=== PATIENT | male | born 1980 | race Two or more races ===

== ENCOUNTER 2019-09-01 00:07 | Inpatient (IN) ==
[2019-09-01] MEDS ORDERED: ONDANSETRON INJ 2 MG/ML 2 ML VIAL IV STA (00:27)
[2019-09-01] MEDS ORDERED: KETOROLAC TROMETHAMINE 15 MG/ML VIAL IV STA (00:27)
[2019-09-01] MEDS ORDERED: MoRPHine SULFATE 4 MG/ML 1 ML CARP\\VIAL IV STA ×2 (00:27→02:01)
--- NOTE | 2019-09-01 00:29 | Emergency Department Note ---
History of Present Illness General Chief complaint: Kidney Stone Stated complaint: EUSEBIANEY STONE Time Seen by Provider: 09/01/19 00:23 History of Present Illness Maximum Pain Intensity: 10 This is a 38-year-old male with a history of renal calculi that presents to the emergency department via private vehicle with complaints of "right-sided flank pain". The patient states that earlier this evening he began with abrupt onset of right-sided flank pain. This was 1 hour prior to arrival. He states that this does feel similar to previous kidney stones. He states that he was admitted in the past. He denies any other pertinent past medical history, surgeries or allergies. No trauma or injury. No fevers or chills. No aggravating or alleviating factors. Home Medications Home Medications Medication Instructions Recorded Confirmed Type cholecalciferol (vitamin D3) 2,000 unit PO DAILY 10/08/18 09/01/19 History [Vitamin D3] multivitamin 1 tab PO DAILY 10/08/18 09/01/19 History trimethoprim 100 mg tablet 100 mg PO Q12H 30 Days #60 tab 08/21/19 09/01/19 Rx Allergies Allergy/AdvReac Type Severity Reaction Status Date / Time No Known Allergies Allergy Mild Verified 09/01/19 00:26 Past Med/Surg History Medical History Hypertension Kidney stones Surgical History No history of previous surgery Family History Grandmother Hypertension Grandfather Cancer Social History Preferred Language: Spanish Communication Ability: Effective Multi Skilled Operator Required: No Beliefs That Will Affect Care: None marital status: Current Living Situation: Alone Current Living Situation Comment: FRIEND current occupational status: employed current occupation: [employer] Other Information That Helps Us Care for You: No Feels Safe at Home: Yes Safety Concerns: Feels Safe At This Time Smoking Status: Never smoker Do You Dip or Chew Tobacco: No ; Second Hand Exposure: No ; Hx Alcohol Use: Yes Alcohol type: beer, wine and hard liquor Hx Substance Use: No Review of Systems A total of 10 systems reviewed and were otherwise negative Physical Exam Vital Signs Vital Signs - 24 hr 09/01/19 00:09 09/01/19 00:37 09/01/19 00:55 Temperature 36.6 C Temperature Source Oral Pulse Rate 69 Pulse Rate [Right Finger] 90 59 L Respiratory Rate 16 18 18 Respiratory Effort / Characteristics Non-Labored Spontaneous Respiratory Depth Normal Blood Pressure 148/81 H Blood Pressure [Left Arm] 158/99 H 148/93 H Blood Pressure Mean 103 Blood Pressure Mean [Left Arm] 118 111 Blood Pressure Position [Left Arm] Sitting Pulse Oximetry 98 96 97 Oxygen Delivery Method Room Air Room Air Room Air Sepsis Recent Fever Within 48 Hours No Sepsis New/Unexplained Change in Mental Status No Sepsis Action Taken by Nursing No Action Required 09/01/19 01:27 09/01/19 02:22 Temperature Temperature Source Pulse Rate Pulse Rate [Right Finger] 70 79 Respiratory Rate 18 18 Respiratory Effort / Characteristics Respiratory Depth Blood Pressure Blood Pressure [Left Arm] 130/79 140/48 L Blood Pressure Mean Blood Pressure Mean [Left Arm] 96 78 Blood Pressure Position [Left Arm] Pulse Oximetry 97 100 Oxygen Delivery Method Room Air Room Air Sepsis Recent Fever Within 48 Hours Sepsis New/Unexplained Change in Mental Status Sepsis Action Taken by Nursing VITAL SIGNS - Vital signs and nursing notes were reviewed. Stable and afebrile. GENERAL -38-year-old male appearing his stated age who is in no acute distress but appears to be in severe pain, is holding the right flank/abdomen and is vomiting. Communicates well with provider and answers questions appropriately. SKIN - Without rashes. HEAD - NC/AT. EYES - PERRL with EOMI bilaterally. EARS - No deformities of external structures noted on gross examination bilate rally. NOSE - Midline and without cyanosis. No epistaxis or purulent drainage noted. MOUTH/OROPHARYNX - Without perioral cyanosis. NECK - Neck with FROM. Supple to palpation. No lymphadenopathy noted. No nuchal rigidity. LUNGS - Chest wall symmetric without accessory muscle use, intercostals retra ctions, or central cyanosis. Normal vesicular breath sounds CTA B/L. No wheezes, rales, or rhonchi appreciated. CARDIAC - RRR with S1/S2. No murmur, rubs, or gallops appreciated. ABDOMEN - Abdominal contour normal without pulsations or visible masses. BS normoactive all four quadrants. R flank tenderness noted. EXTREMITIES - No clubbing or peripheral cyanosis. No pretibial edema present. +5/5 strength noted in UE/LE bilaterally. NEUROLOGIC - Cranial nerves II through XII grossly intact. Sensory intact to light touch throughout. PSYCH - A&O, and cooperates fully with examiner. Pt is very pleasant and interacts well with examiner. Course Administered Medications Morphine Sulfate (Morphine Sulfate) 4 mg IV Q3H PRN PRN Reason: Severe Pain Stop: 09/15/19 04:10 Last Admin: 09/01/19 07:43 Dose: 4 mg Documented by: [id number] Admin: 09/01/19 04:40 Dose: 4 mg Documented by: [id number] Ondansetron HCl (Zofran) 4 mg IV Q6H PRN PRN Reason: Nausea Stop: 10/01/19 04:10 Last Admin: 09/01/19 04:40 Dose: 4 mg Documented by: [id number] Discontinued Medications Sodium Chloride (Nss 1000ml) 1,000 mls @ 999 mls/hr IV .Q1H1M RAMON Stop: 09/01/19 01:30 Last Infusion: 09/01/19 01:21 Dose: 0 mls/hr Documented by: [id number] Admin: 09/01/19 00:33 Dose: 999 mls/hr Documented by: [id number] Sodium Chloride (Nss 1000ml) 1,000 mls @ 999 mls/hr IV .Q1H1M ONE Stop: 09/01/19 05:11 Last Infusion: 09/01/19 05:48 Dose: 0 mls/hr Documented by: [id number] Admin: 09/01/19 04:41 Dose: 999 mls/hr Documented by: [id number] Ketorolac Tromethamine (Toradol) 15 mg IV NOW STA Stop: 09/01/19 00:28 Last Admin: 09/01/19 00:33 Dose: 15 mg Documented by: [id number] Morphine Sulfate (Morphine Sulfate) 4 mg IV NOW STA Stop: 09/01/19 00:28 Last Admin: 09/01/19 00:33 Dose: 4 mg Documented by: [id number] Morphine Sulfate (Morphine Sulfate) 4 mg IV NOW STA Stop: 09/01/19 02:02 Last Admin: 09/01/19 02:21 Dose: 4 mg Documented by: [id number] Ondansetron HCl (Zofran) 4 mg IV NOW STA Stop: 09/01/19 00:28 Last Admin: 09/01/19 00:33 Dose: 4 mg Documented by: [id number] Tamsulosin HCl (Flomax) 0.4 mg PO NOW ONE Stop: 09/01/19 02:02 Last Admin: 09/01/19 02:21 Dose: 0.4 mg Documented by: [id number] Medical Decision Making Laboratory Data Result diagrams: 09/01/19 00:19 09/01/19 00:19 Lab Results 09/01/19 09/01/19 09/01/19 Range/Units 00:19 00:19 02:00 WBC 6.21 (4.8-10.8) K/uL RBC 5.17 (4.7-6.1) M/uL Hgb 16.2 (14.0-18.0) g/dL Hct 45.8 (42-52) % MCV 88.6 (80-100) fL MCH 31.3 (25-34) pg MCHC 35.4 (32-36) g/dL RDW Std Deviation 38.5 (36.4-46.3) fL RDW Coeff of Uri 12.0 (11.5-14.5) % Plt Count 207 (130-400) K/uL MPV 12.6 H (7.4-10.4) fL Immature Gran % (Auto) 0.2 % Neut % (Auto) 46.6 % Lymph % (Auto) 38.3 % [place] % (Auto) 8.9 % Eos % (Auto) 5.5 % Baso % (Auto) 0.5 % Immature Gran # (Auto) 0.01 (0.00-0.02) K/uL Neut # (Auto) 2.90 (1.4-6.5) K/uL Lymph # (Auto) 2.38 (1.2-3.4) K/uL [place] # (Auto) 0.55 (0.11-0.59) K/uL Eos # (Auto) 0.34 (0-0.5) K/uL Baso # (Auto) 0.03 (0-0.2) K/uL Sodium 138 (136-145) mmol/L Potassium 3.9 (3.5-5.1) mmol/L Chloride 103 (98-107) mmol/L Carbon Dioxide 30 (21-32) mmol/L Anion Gap 5.0 (3-11) BUN 18 (7-18) mg/dl Creatinine 1.41 H (0.6-1.4) mg/dl Est Cr Clr Drug Dosing Not Reportable Est GFR ( Amer) 72.7 Est GFR (Non-Af Amer) 62.7 BUN/Creatinine Ratio 12.6 (10-20) Glucose 112 H (70-99) mg/dl Calcium 9.3 (8.5-10.1) mg/dl Magnesium 2.0 (1.8-2.4) mg/dl Total Bilirubin 0.5 (0.2-1) mg/dl AST 14 L (15-37) U/L ALT 22 (12-78) U/L Alkaline Phosphatase 59 (45-117) U/L Total Protein 7.7 (6.4-8.2) gm/dl Albumin 4.1 (3.4-5.0) gm/dl Globulin 3.6 (2.5-4.0) gm/dl Albumin/Globulin Ratio 1.1 (0.9-2) Lipase 148 (73-393) U/L Urine Color Yellow Urine Appearance Clear (Clear) Urine pH 7.0 (4.5-7.5) Ur Specific [place] 1.023 (1.000-1.030) Urine Protein Negative (Negative) Urine Glucose (UA) Negative (Negative) Urine Ketones Trace H (Negative) Urine Blood 3+ H (Negative) Urine Nitrite Negative (Negative) Urine Bilirubin Negative (Negative) Urine Urobilinogen Negative (Negative) Ur Leukocyte Esterase Negative (Negative) Urine WBC (Auto) 1-5 (0-5) /hpf Urine RBC (Auto) >30 H (0-4) /hpf U Hyaline Cast (Auto) 1-5 (0-5) /lpf U Epithel Cells (Auto) 0-5 (0-5) /lpf Urine Bacteria (Auto) Negative (Negative) Imaging Data Radiologist's Impression: CT ABDOMEN & PELVIS Without Contrast: There is a 3 mm obstructing stone within the distal right ureter with mild upstream hydroureteronephrosis. 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 Normal appendix. Radiologist: Te Whipple MD Study ready at 00:55 and initial results transmitted at 01:37 MDM Narrative Patient was seen and evaluated as above in room a 4. Review was performed of nursing notes and vital signs. After obtaining a thorough history and physical examination the above work up was performed. He presents to us today with some right flank pain. He is nontoxic on exam but does appear to be in a fair amount of pain. IV access was established. He was given IV analgesics, antiemetics. He was reevaluated with some improvement. CT scan obtained. 3 mm obstructing stone noted with secondary obstructive changes. Pain was still moderate and he was given more pain medication. Benefit versus risk of inpatient versus outpatient management was discussed. Patient would prefer to stay in the hospital for further evaluation and management. I believe this is reasonable. Case discussed with the hospitalist. Please refer to further documentation regarding his stay. Labs reveal no leukocytosis or anemia. No emergent metabolic disturbance. Creatinine 1.41. Urinalysis reveals blood but no infection. Case discussed with the hospitalist. Please refer to further documentation In the evaluation and treatment of this patient the following differential diagnoses were entertained: Fracture, dislocation, subluxation, contusion, renal calculi, obstruction, pyelonephritis, UTI, among others. Impression & Plan Hydroureteronephrosis, Ureteral obstruction, right, Right ureteral calculus Discharge Plan Visit Data *Final* Discharge Date/Time: 09/01/19 03:54 Chief Complaint: Kidney Stone Stated Complaint: KINDNEY STONE ED Provider: Kenia Arzate ED Midlevel Provider: Alvin Schuster Discharge Problem: Hydroureteronephrosis, Ureteral obstruction, right, Right ureteral calculus Patient Disposition: Admitted As Inpatient Condition: Good Discharge Instructions Interventions: ED Discharge Assessment Last Done: 09/01/19 03:54
[2019-09-01] MEDS ORDERED: SODIUM CHLORIDE 0.9% 1000ML 1,000 ML IV SCH (00:30)
[2019-09-01 00:39] LABS: Basophils # (auto) 0.03 K/uL (0-0.2); Basophils % (auto) 0.5 %; Eosinophils # (auto) 0.34 K/uL (0-0.5); Eosinophils % (auto) 5.5 %; Hematocrit (blood only) 45.8 % (42-52); Hemoglobin 16.2 g/dL (14.0-18.0); Immature Granulocytes # (auto) 0.01 K/uL (0.00-0.02); Immature Granulocytes % (auto) 0.2 %; Lymphocytes # (auto) 2.38 K/uL (1.2-3.4); Lymphocytes % (auto) 38.3 %; Mean Corpuscular Hemoglobin 31.3 pg (25-34); Mean Corpuscular Hgb Conc 35.4 g/dL (32-36); Mean Corpuscular Volume 88.6 fL (80-100); Mean Platelet Volume 12.6 fL (7.4-10.4); Monocytes # (auto) 0.55 K/uL (0.11-0.59); Monocytes % (auto) 8.9 %; Neutrophils % (auto) 46.6 %; Platelet Count 207 K/uL (130-400); RDW Standard Deviation 38.5 fL (36.4-46.3); Red Blood Count 5.17 M/uL (4.7-6.1); White Blood Count 6.21 K/uL (4.8-10.8)
[2019-09-01 00:59] LABS: Alanine Aminotransferase 22 U/L (12-78); Albumin Level 4.1 gm/dl (3.4-5.0); Aspartate Aminotransferase 14 U/L (15-37); BUN Creatinine Ratio 12.6 (10-20); Blood Urea Nitrogen 18 mg/dl (7-18); Calcium 9.3 mg/dl (8.5-10.1); Carbon Dioxide 30 mmol/L (21-32); Chloride 103 mmol/L (98-107); Est GFR (African American) 72.7; Est GFR (Non-African American) 62.7; Glucose 112 mg/dl (70-99); Lipase 148 U/L (73-393); Potassium 3.9 mmol/L (3.5-5.1); Sodium 138 mmol/L (136-145)
[2019-09-01 01:01] LABS: Albumin Globulin Ratio 1.1 (0.9-2); Alkaline Phosphatase 59 U/L (45-117); Bilirubin,Total 0.5 mg/dl (0.2-1); Globulin 3.6 gm/dl (2.5-4.0); Total Protein 7.7 gm/dl (6.4-8.2)
[2019-09-01] MEDS ORDERED: TAMSULOSIN HCL 0.4 MG CAP PO ONE (02:01)
[2019-09-01 02:27] LABS: Appearance Urine Clear (Clear); Bacteria Urine Automated Negative (Negative); Bilirubin Urine Negative (Negative); Blood Urine 3+ (Negative); Color Urine Yellow; Epithelial Cell Urine Auto 0-5 /lpf (0-5); Glucose Urine UA Negative (Negative); Ketones Urine Trace (Negative); Leukocyte Esterase Urine Negative (Negative); Nitrite Urine Negative (Negative); Protein Urine Negative (Negative); RBC Urine Automated >30 /hpf (0-4); Specific Gravity Urine 1.023 (1.000-1.030); Urobilinogen Urine Negative (Negative)
--- NOTE | 2019-09-01 03:29 | History & Physical Report ---
Date of Service September 01, 2019 Assessment & Plan (1) Right distal ureteral calculus: Right distal 3 mm ureteral calculus with mild hydronephrosis of right kidney- NPO He is received 1 L of normal saline in the ED so far. We will add a second liter now. Follow urine culture and sensitivities. Start ceftriaxone 1 g IV daily. Morphine sulfate 4 mg IV every 3 hours as needed severe pain. Consult urology Dr. Murphy. Present on Admission?: Yes (2) Hydronephrosis of right kidney: See above Present on Admission?: Yes (3) Chronic prostatitis: Patient was recently started on trimethoprim on 08/21/2019 with plan for 30-day treatment. We will hold trimethoprim for now, as he will be placed on ceftriaxone IV. Present on Admission?: Yes (4) Kidney stone on left side: Patient's previous kidney stones on the left side He reports it took 3 days to pass, but did not require stent placement. Present on Admission?: Yes History of Present Illness Chief Complaint: The patient presents to the emergency department with the acute onset of right flank pain at 11:00 this evening, similar to his previous kidney stone. Primary Care Provider: NO PCP The patient is a 38-year-old male with a past medical history including chronic prostatitis, previous kidney stone on the left side, and urinary tract infection. He reports that he was aware of a kidney stone being present within the kidney on the right side, and thus when he experienced acute onset of the pain at 11:00 this evening on the right side, he figured it was kidney stone had moved, and presented to the ED for assessment. He has had some intermittent nausea as well. Both the pain and nausea are controlled with medications at this time. He reports that he had been to see Dr. Murphy on August 21, and was started on trimethoprim 100 mg p.o. every 12 hours for 30 days due to possible urinary tract infection. Allergies Allergy/AdvReac Type Severity Reaction Status Date / Time No Known Allergies Allergy Mild Verified 09/01/19 00:26 Home Medications Home Medications Medication Instructions Recorded Confirmed Type cholecalciferol (vitamin D3) 2,000 unit PO DAILY 10/08/18 09/01/19 History [Vitamin D3] multivitamin 1 tab PO DAILY 10/08/18 09/01/19 History trimethoprim 100 mg tablet 100 mg PO Q12H 30 Days #60 tab 08/21/19 09/01/19 Rx Past Med/Surg History Medical History (Updated 09/01/19 @ 04:19 by Andrey Brunson MD) Hypertension Kidney stones Surgical History No history of previous surgery Family History (Updated 08/21/19 @ 16:28 by Armida Vigil RN) Grandmother Hypertension Grandfather Cancer Social History (Updated 08/21/19 @ 16:29 by Armida Vigil RN) Preferred Language: [place]an Communication Ability: Effective Manager Medical Writing Required: No Beliefs That Will Affect Care: None marital status: Current Living Situation: Significant Other Current Living Situation Comment: FRIEND current occupational status: employed 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 Feels Safe at Home: Yes Smoking Status: Never smoker Second Hand Exposure: No ; Hx Alcohol Use: Yes Alcohol type: beer and wine Hx Substance Use: No Review of Systems Review of Systems: The patient denies chest pain, palpitations, shortness of breath, dyspnea on exertion, cough, lower extremity swelling, sore throat, fevers, chills, sweats, vomiting, diarrhea , constipation, blood in urine or stool, dysuria, urinary frequency or urgency, lightheadedness, dizziness, headache, memory loss, loss of consciousness, rash, abnormal bruising or bleeding, imbalance, focal or generalized weakness, numbness or tingling in arms or legs, generalized arthralgias or myalgias, neck pain, or night sweats. The review of systems is otherwise negative other than for that already noted above, and at least 10 systems have been reviewed. Physical Exam Physical Exam: The patient is awake, alert and oriented 3, well developed and well nourished, normocephalic and atraumatic, lying in bed and in no acute distress. HEENT--PERRL, EOMI, mucous membranes and oropharynx normal. Neck--supple. No JVD. No bruits. Thyroid normal, trachea midline, no adenopathy. Heart--normal S1 and S2. No murmurs, rubs or gallops. Lungs--clear bilaterally, no respiratory distress, no accessory muscle use. Abdomen--normal bowel sounds and soft. Nontender. Nondistended. Extremities--no cyanosis or clubbing. No edema. Dermatologic--normal skin turgor, normal color, no abnormal lymph nodes, no rash. Neurologic--cranial nerves II through XII grossly intact. Rheumatologic--normal range of motion. Psychiatric--normal affect. Results & Data Vital Signs (Past 12 Hours) Vital Signs Temp Pulse Pulse Resp BP BP Pulse Ox 09/01/19 02:22 79 18 140/48 L 100 09/01/19 01:27 70 18 130/79 97 09/01/19 00:55 59 L 18 148/93 H 97 09/01/19 00:37 90 18 158/99 H 96 09/01/19 00:09 97.9 F 69 16 148/81 H 98 Laboratory Results Laboratory Results WBC 6.21 K/uL (4.8-10.8) 09/01/19 00:19 RBC 5.17 M/uL (4.7-6.1) 09/01/19 00:19 Hgb 16.2 g/dL (14.0-18.0) 09/01/19 00:19 Hct 45.8 % (42-52) 09/01/19 00:19 MCV 88.6 fL (80-100) 09/01/19 00:19 MCH 31.3 pg (25-34) 09/01/19 00:19 MCHC 35.4 g/dL (32-36) 09/01/19 00:19 RDW Std Deviation 38.5 fL (36.4-46.3) 09/01/19 00:19 RDW Coeff of Uri 12.0 % (11.5-14.5) 09/01/19 00:19 Plt Count 207 K/uL (130-400) 09/01/19 00:19 MPV 12.6 fL (7.4-10.4) H 09/01/19 00:19 Immature Gran % (Auto) 0.2 % 09/01/19 00:19 Neut % (Auto) 46.6 % 09/01/19 00:19 Lymph % (Auto) 38.3 % 09/01/19 00:19 [place] % (Auto) 8.9 % 09/01/19 00:19 Eos % (Auto) 5.5 % 09/01/19 00:19 Baso % (Auto) 0.5 % 09/01/19 00:19 Immature Gran # (Auto) 0.01 K/uL (0.00-0.02) 09/01/19 00:19 Neut # (Auto) 2.90 K/uL (1.4-6.5) 09/01/19 00:19 Lymph # (Auto) 2.38 K/uL (1.2-3.4) 09/01/19 00:19 [place] # (Auto) 0.55 K/uL (0.11-0.59) 09/01/19 00:19 Eos # (Auto) 0.34 K/uL (0-0.5) 09/01/19 00:19 Baso # (Auto) 0.03 K/uL (0-0.2) 09/01/19 00:19 Sodium 138 mmol/L (136-145) 09/01/19 00:19 Potassium 3.9 mmol/L (3.5-5.1) 09/01/19 00:19 Chloride 103 mmol/L (98-107) 09/01/19 00:19 Carbon Dioxide 30 mmol/L (21-32) 09/01/19 00:19 Anion Gap 5.0 (3-11) 09/01/19 00:19 BUN 18 mg/dl (7-18) 09/01/19 00:19 Creatinine 1.41 mg/dl (0.6-1.4) H 09/01/19 00:19 Est Cr Clr Drug Dosing Not Reportable 09/01/19 00:19 Est GFR ( Amer) 72.7 09/01/19 00:19 Est GFR (Non-Af Amer) 62.7 09/01/19 00:19 BUN/Creatinine Ratio 12.6 (10-20) 09/01/19 00:19 Glucose 112 mg/dl (70-99) H 09/01/19 00:19 Calcium 9.3 mg/dl (8.5-10.1) 09/01/19 00:19 Magnesium 2.0 mg/dl (1.8-2.4) 09/01/19 00:19 Total Bilirubin 0.5 mg/dl (0.2-1) 09/01/19 00:19 AST 14 U/L (15-37) L 09/01/19 00:19 ALT 22 U/L (12-78) 09/01/19 00:19 Alkaline Phosphatase 59 U/L (45-117) 09/01/19 00:19 Total Protein 7.7 gm/dl (6.4-8.2) 09/01/19 00:19 Albumin 4.1 gm/dl (3.4-5.0) 09/01/19 00:19 Globulin 3.6 gm/dl (2.5-4.0) 09/01/19 00:19 Albumin/Globulin Ratio 1.1 (0.9-2) 09/01/19 00:19 Lipase 148 U/L (73-393) 09/01/19 00:19 Urine Color Yellow 09/01/19 02:00 Urine Appearance Clear (Clear) 09/01/19 02:00 Urine pH 7.0 (4.5-7.5) 09/01/19 02:00 Ur Specific [place] 1.023 (1.000-1.030) 09/01/19 02:00 Urine Protein Negative (Negative) 09/01/19 02:00 Urine Glucose (UA) Negative (Negative) 09/01/19 02:00 Urine Ketones Trace (Negative) H 09/01/19 02:00 Urine Blood 3+ (Negative) H 09/01/19 02:00 Urine Nitrite Negative (Negative) 09/01/19 02:00 Urine Bilirubin Negative (Negative) 09/01/19 02:00 Urine Urobilinogen Negative (Negative) 09/01/19 02:00 Ur Leukocyte Esterase Negative (Negative) 09/01/19 02:00 Urine WBC (Auto) 1-5 /hpf (0-5) 09/01/19 02:00 Urine RBC (Auto) >30 /hpf (0-4) H 09/01/19 02:00 U Hyaline Cast (Auto) 1-5 /lpf (0-5) 09/01/19 02:00 U Epithel Cells (Auto) 0-5 /lpf (0-5) 09/01/19 02:00 Urine Bacteria (Auto) Negative (Negative) 09/01/19 02:00 Diagnostic Findings [facility] Patient: KAY CARRION (Male) : 80 Status: ER Date: 09/01/19 00:50 Room #: History: EVAL RIGHT FLANK PAIN , APPENDIX PRESENT Slices: [phone] Priors: Tech: Alexi Núñez @ [phone] Exams: CT ABDOMEN & PELVIS Without Contrast Accession Numbers: [id number] Preliminary Findings Only See Final Report For Complete Findings CT ABDOMEN & PELVIS Without Contrast: There is a 3 mm obstructing stone within the distal right ureter with mild upstream hydroureteronephrosis. 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 Normal appendix. Radiologist: Te Whipple MD Study ready at 00:55 and initial results transmitted at 01:37 *This report constitutes a preliminary interpretation only. Non-acute findings felt to be unrelated to the clinical presentation may not be discussed in this report. The study will be interpreted and a final report will be generated by the local Radiologist the following shift. To reach the hospital radiology department call [phone]. If a discrepancy is found between the preliminary and final interpretations of this study, please notify us via our Client Portal at [email or web address] can also fax this report with a description of the discrepancy, or include the final report, to our daytime fax number [phone].If faxing, please indicate the severity of discrepancy using one of the following categories: [ ] 1 - Agree/Informational [ ] 2 - Unlikely to Affect Management [ ] 3 - Possible Eventual Change of Management [ ] 4 - Probable Immediate Change of Management For all other patient related information, please fax us at [phone]. [id number] Code Status & VTE Plan Code Status Full code VTE Prophylaxis Plan VTE Prophylaxis will be ordered: Yes PG Care Time/CCT Total # of Minutes Spent Total Time Spent with Patient: Total time spent is greater than 50% in coordination of care (as documented) at patient's floor/unit and/or counseling patient: Coding Level of Care Code 14778 Initial Inpt Care Lvl 2 Diagnoses Right distal ureteral calculus N20.1 Hydronephrosis of right kidney N13.30 Chronic prostatitis N41.1 Kidney stone on left side N20.0
[2019-09-01] MEDS ORDERED: SODIUM CHLORIDE 0.9% 1000ML 1,000 ML IV ONE (04:11)
[2019-09-01] MEDS ORDERED: INFLUENZA ADMINISTRATION CHARGE ONE (04:35)
[2019-09-01] MEDS ORDERED: INFLUENZA VIRUS QUAD VACCINE 0.5 ML SYR IM ONE (04:35)
[2019-09-01] MEDS: ONDANSETRON INJ 2 MG/ML 2 ML VIAL IV PRN ×3 (04:40→20:07)
[2019-09-01] MEDS: MoRPHine SULFATE 4 MG/ML 1 ML CARP\\VIAL IV PRN ×2 (04:40→07:43)
--- NOTE | 2019-09-01 06:13 | CT Scan Report ---
CT abd pelvis wo con CT DOSE: 327.75 mGy.cm HISTORY: Pain. Nausea. R flank pain TECHNIQUE: Multiaxial CT images of the abdomen and pelvis were performed without contrast. A dose lo wering technique was utilized adhering to the principles of ALARA. COMPARISON STUDY: 04/03/2018 FINDINGS: Lung bases are clear. 2.5 cm unchanged right hepatic hemangioma. Spleen and pancreas are otherwise unremarkable. Left kidney is unremarkable. There is mild right rene l hydroureteronephrosis. There is a 3 mm distal right ureteral obstructing calculus. Bladder is midli ne. The bowel pattern is nonobstructive. IMPRESSION: 3 mm obstructing calculus distal right ureter. ACT 112: Negative or not required by law. The above report was generated using voice recognition software. It may contain grammatical, syntax or spelling errors. Electronically signed by: Tree Hall M.D. 09/01/2019 6:11 AM
[2019-09-01] MEDS ORDERED: HYDROmorphone INJ 0.5 MG/0.5 ML SYR IV PRN (09:42)
[2019-09-01] MEDS: cefTRIAXone SODIUM 1,000 MG in DEXTROSE 5% 50 ML IV SCH (09:53)
--- NOTE | 2019-09-01 09:58 | Urology Consultation ---
Date of Consultation September 01, 2019 Assessment & Plan (1) Hydroureteronephrosis: (2) Ureteral obstruction, right: A/P 38-year-old male with a right distal 3 mm ureteral stone, renal insufficiency and renal colic. I suspect some degree of his renal insufficiency is due to dehydration. Will start IV fluids to assist with stone passage. Patient requests an additional dose of tamsulosin this morning to assist with ureteral dilation and stone passage as he has had some success with this medication in the past. He is warned against orthostasis as a possible side effect, less likely at his age, and this is provided. Various forms of management of the patient's acute condition are reviewed. He has a strong preference against proceeding to the operating room today and would prefer to try to pass his stone with IV fluids, alpha blockers and supportive management. This is not unreasonable seen his stone size and location. Will provide normal saline for diuresis. Patient is anxious to be discharged home today as he has a dog home alone. My recommendation is that he be observed until stone passage or resolution of his symptoms for an extended period of time. Should he remain overnight we will plan on a KUB in the morning and placing the patient n.p.o. in case intervention is required. Repeat basic metabolic panel was ordered for this evening to ensure that his creatinine begins to improve with IV fluids as well as for tomorrow morning. Patient vocalizes good understanding of the treatment plan. Thank you for allowing us to participate in this patient's acute care. Should the patient's stone pass and his creatinine improve he would be considered stable for discharge home today by our service. (3) Intractable pain: History of Present Illness Reason for Consultation: R distal ureteral stone, renal insufficiency and colic. Attending Physician: Flo Angulo MD History of Present Illness 38 yo male, known to our service, admitted last night for a distal R ureteral stone, colic, nausea and vomiting. He was noted to have an elevated Cr of 1.4, up from baseline. His labwork, H&P and admission CT scan images are personally reviewed. He has recently been started on a course of trimethoprim for possible prostatitis. He notes he has had a single prior stone which was passed spon taneously shortly before planned extracorporeal shockwave lithotripsy. He reports he is having less pain with this stone episode than with his last. He has not passed his stone yet and continues to have pain, nausea and vomiting. Allergies Allergy/AdvReac Type Severity Reaction Status Date / Time No Known Allergies Allergy Mild Verified 09/01/19 00:26 Home Medications Home Medications Medication Instructions Recorded Confirmed Type cholecalciferol (vitamin D3) 2,000 unit PO DAILY 10/08/18 09/01/19 History [Vitamin D3] multivitamin 1 tab PO DAILY 10/08/18 09/01/19 History trimethoprim 100 mg tablet 100 mg PO Q12H 30 Days #60 tab 08/21/19 09/01/19 Rx Patient History Medical History Hypertension Kidney stones Surgical History No history of previous surgery Family History Grandmother Hypertension Grandfather Cancer Social History Preferred Language: Citizen Of The [place] Communication Ability: Effective Group Exercise Manager Required: No Beliefs That Will Affect Care: None marital status: Current Living Situation: Alone Current Living Situation Comment: FRIEND current occupational status: employed 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 Other Information That Helps Us Care for You: No Feels Safe at Home: Yes Safety Concerns: Feels Safe At This Time Smoking Status: Never smoker Do You Dip or Chew Tobacco: No ; Second Hand Exposure: No ; Hx Alcohol Use: Yes Alcohol type: beer, wine and hard liquor Hx Substance Use: No Review of Systems Constitutional: no fever and no chills Eyes: no diplopia Ear, Nose, Mouth, Throat: no ear trauma Respiratory: no hemoptysis Cardiovascular: no chest pain Gastrointestinal: + abdominal pain, + nausea and + vomiting Genitourinary: + as per Subjective / HPI Musculoskeletal: + back pain Integumentary: no acne and no boil Neurologic: no paralysis Psychiatric: no hopelessness Allergy / Immunological: no tongue swelling Physical Exam Constitutional: well developed, well nourished and + acute distress (Nauseous) Eyes: eyes not dysmorphic ENMT: Ears: no external ear abnormality Neck: trachea midline; no anterior neck swelling Respiratory: no respiratory distress and does not use accessory muscles Cardiovascular: Vessels: radial pulses present Gastrointestinal (Abdomen): Inspection/Auscultation: abdomen not distended Percussion/Palpation: abdomen soft; abdomen nontender Musculoskeletal: Head/Neck/Chest: normocephalic and neck supple Skin: normal turgor Neurologic: awake; not obtunded Psychiatric: Orientation: oriented x 3 Lymphatic: no lymphadenopathy Results & Data Vital Signs (Past 12 Hours) Vital Signs Temp Pulse Pulse Resp BP BP Pulse Ox 09/01/19 07:33 36.4 C L 68 16 128/76 97 09/01/19 04:14 36.4 C L 70 20 134/76 96 09/01/19 03:56 79 18 131/74 96 09/01/19 02:22 79 18 140/48 L 100 09/01/19 01:27 70 18 130/79 97 09/01/19 00:55 59 L 18 148/93 H 97 09/01/19 00:37 90 18 158/99 H 96 09/01/19 00:09 36.6 C 69 16 148/81 H 98 PG Care Time/CCT Total # of Minutes Spent Total Time Spent with Patient: Total time spent is greater than 50% in coordination of care (as documented) at patient's floor/unit and/or counseling patient: Coding Level of Care Code 00284 Inpt Consult Level 4 Diagnoses Hydroureteronephrosis N13.30 Ureteral obstruction, right N13.5 Intractable pain R52
[2019-09-01] MEDS: SODIUM CHLORIDE 0.9% 1000ML 1,000 ML IV SCH ×2 (10:33→19:11)
--- NOTE | 2019-09-01 13:41 | History & Physical Bridge Note ---
Date of Service September 01, 2019 History & Physical Bridge Note I have examined the patient, reviewed the History & Physical and in the interval since the performance of the History & Physical I have noted the following changes of clinical significance: no changes noted Patient continuing to report 7/10 pain - will change pain control from morphine to dilaudid and see if that offers any more relief and will also schedule 1g Tylenol q8h. Will avoid NSAIDs due to ASH. Repeat prp this afternoon per urology. Patient would like to avoid the OR and so will see if he can pass the stone on his own today. IVF infusing. Continue tamsulosin. Clear liquid diet. UC pending, continue ceftriaxone for now.
[2019-09-01 14:44] LABS: BUN Creatinine Ratio 10.3 (10-20); Calcium 8.6 mg/dl (8.5-10.1); Creatinine Clr Calc Pharmacy 75.3 ml/min; Est GFR (Non-African American) 67.3; Potassium 4.5 mmol/L (3.5-5.1)
[2019-09-01] MEDS ORDERED: MoRPHine SULFATE 4 MG/ML 1 ML CARP\\VIAL IV PRN (15:22)
[2019-09-01] MEDS: METOCLOPRAMIDE HCL INJ 5 MG/ML 2 ML VIAL IV PRN ×2 (15:44→23:30)
[2019-09-01] MEDS: ACETAMINOPHEN 500 MG TAB PO SCH ×2 (18:37→23:24)
[2019-09-01] MEDS: TAMSULOSIN HCL 0.4 MG CAP PO ONE ×2 (18:37→19:12)
[2019-09-01] MEDS ORDERED: TAMSULOSIN HCL 0.4 MG CAP PO SCH (21:00)
[2019-09-02] MEDS: SODIUM CHLORIDE 0.9% 1000ML 1,000 ML IV SCH ×2 (04:15→12:23)
[2019-09-02] MEDS: ACETAMINOPHEN 500 MG TAB PO SCH ×2 (05:32→09:00)
[2019-09-02 06:07] LABS: BUN Creatinine Ratio 10.8 (10-20); Calcium 8.2 mg/dl (8.5-10.1); Creatinine Clr Calc Pharmacy 71.5 ml/min; Est GFR (African American) 73.4; Est GFR (Non-African American) 63.3; Potassium 3.9 mmol/L (3.5-5.1)
--- NOTE | 2019-09-02 07:23 | XRay Report ---
XR KUB/Abdomen 1 view CLINICAL HISTORY: stone disease COMPARISON STUDY: CT scan dated 09/01/2019 FINDINGS: There is no pathologic bowel dilatation. No urinary tract calculi are visualized. The dista l right ureteral calculus described on the recent CT scan is not visible on conventional radiographic imaging IMPRESSION: 1. Normal bowel gas pattern 2. The recently described distal right ureteral calculus is not visualized on conventional radiograph ic imaging ACT 112: Negative or not required by law. Electronically signed by: Franko Warren M.D. 09/02/2019 7:22 AM
--- NOTE | 2019-09-02 08:11 | Urology Progress Note ---
Date of Service September 02, 2019 Assessment & Plan (1) Right ureteral calculus: (2) Ureteral obstruction, right: (3) Hydroureteronephrosis: 38-year-old male patient with a right distal 3 mm ureteral stone, renal insufficiency, and renal colic. -Patient with clinical improvement this morning. -Remains NPO -No urine culture in chart - urinalysis not indicative of infection. -KUB reviewed, no visible stone. -Discussed options with patient, he prefers to defer surgical intervention given resolution of pain. -Discussed case with Dr. Roberts - no surgical intervention today. -Okay to give diet. -Stable from perspective to be discharged with max expulsion therapy (Flomax, pain control, hydration). -Will arrange follow-up outpatient with our service this week with KUB prior to appointment. -Reviewed ER criteria with patient, he is in agreement with plan and verbalizes understanding. Thank you for allowing us to participate in the acute care of Mr. Macdonald. Please reconsult us with additional questions, concerns or changes in patient status. Subjective Patient alert, awake, sitting in bed. Reports he is feeling better overall. Patient remains NPO since midnight. Denies pain this morning. Has not needed pain medication since last night at 2300. Denies fevers or chills overnight. Afebrile on chart review. Currently denies nausea or vomiting. Denies hematuria - states he did initially have brown/yellow urine. Denies dysuria, frequency, or urgency. Urine has been strained overnight without passing of stone. Creatinine 1.40 today (previously 1.33). Wbc 6.21 KUB this morning performed - no visible stone on KUB. Given patient feeling well, he is requesting to be discharged. Review of Systems Constitutional: as per Subjective / HPI; no fever and no chills Gastrointestinal: as per Subjective / HPI; no nausea and no vomiting Genitourinary: + as per Subjective / HPI Physical Exam Constitutional: well developed and well nourished; no acute distress and not ill appearing Non-toxic appearing. Respiratory: normal respiratory effort and able to speak in complete sentences; no respiratory distress and no audible wheezes Gastrointestinal (Abdomen): Inspection/Auscultation: abdomen normal to inspection; abdomen not distended Percussion/Palpation: abdomen soft; abdomen nontender and no guarding Psychiatric: Orientation: alert, oriented x 3 and cooperative Affect: euthymic affect Genitourinary: no CVA tenderness Results & Data Vital Signs (Past 12 Hours) Vital Signs Temp Pulse Pulse Resp BP Pulse Ox 09/02/19 07:25 37.3 C 64 16 102/60 97 09/01/19 23:20 37.5 C 67 14 124/60 97 PG Care Time/CCT Total # of Minutes Spent Total Time Spent with Patient: Total time spent is greater than 50% in coordination of care (as documented) at patient's floor/unit and/or counseling patient: Coding Level of Care Code 12523 Subseq Hosp Care Lvl 2 Diagnoses Right ureteral calculus N20.1 Ureteral obstruction, right N13.5 Hydroureteronephrosis N13.30
[2019-09-02] MEDS: cefTRIAXone SODIUM 1,000 MG in DEXTROSE 5% 50 ML IV SCH (08:56)
[2019-09-02] MEDS ORDERED: TAMSULOSIN HCL 0.4 MG CAP PO SCH (09:00)
[2019-09-02] MEDS ORDERED: Nursing to Pharmacy Communication ONE (09:02)
[2019-09-02 13:31] LABS: Calcium 8.3 mg/dl (8.5-10.1); Creatinine Clr Calc Pharmacy 68.6 ml/min; Est GFR (African American) 69.7; Est GFR (Non-African American) 60.2
--- NOTE | 2019-09-02 14:23 | Discharge Summary ---
Date of Service September 02, 2019 Admission HPI Per Admitting Provider The patient is a 38-year-old male with a past medical history including chronic prostatitis, previous kidney stone on the left side, and urinary tract infection. He reports that he was aware of a kidney stone being present within the kidney on the right side, and thus when he experienced acute onset of the pain at 11:00 this evening on the right side, he figured it was kidney stone had moved, and presented to the ED for assessment. He has had some intermittent nausea as well. Both the pain and nausea are controlled with medications at this time. He reports that he had been to see Dr. Murphy on August 21, and was started on trimethoprim 100 mg p.o. every 12 hours for 30 days due to possible urinary tract infection. Admission Exam Per Admitting Provider Physical Exam: The patient is awake, alert and oriented 3, well developed and well nourished, normocephalic and atraumatic, lying in bed and in no acute distress. HEENT--PERRL, EOMI, mucous membranes and oropharynx normal. Neck--supple. No JVD. No bruits. Thyroid normal, trachea midline, no adenopathy. Heart--normal S1 and S2. No murmurs, rubs or gallops. Lungs--clear bilaterally, no respiratory distress, no accessory muscle use. Abdomen--normal bowel sounds and soft. Nontender. Nondistended. Extremities--no cyanosis or clubbing. No edema. Dermatologic--normal skin turgor, normal color, no abnormal lymph nodes, no rash. Neurologic--cranial nerves II through XII grossly intact. Rheumatologic--normal range of motion. Psychiatric--normal affect. Principal Diagnosis Kidney Stone with Hydronephrosis Discharge Exam Constitutional WD/WN, vitals as above no acute distress Eyes PERRL, conjunctivae normal, anicteric sclerae ENMT external ear and nose normal, oropharynx normal Neck trachea midline, no thyromegaly Respiratory normal respiratory effort, lungs clear to auscultation Cardiovascular RRR, no murmur, no edema Gastrointestinal (Abdomen) normal bowel sounds, soft, nontender, no hepatosplenomegaly Musculoskeletal no cyanosis or clubbing, extremities motor strength 5/5 Skin no rashes, warm and dry Neurologic PERRL, EOMI, accommodation nl, no face palsy, no dysarthria Psychiatric A+Ox3, euthymic affect Discharge Data Allergies Allergy/AdvReac Type Severity Reaction Status Date / Time ketorolac [From Toradol] AdvReac decrease Verified 09/06/19 11:25 kidney function Consultations 09/01/19 02:57 ED Decision to Admit Stat 09/01/19 04:11 Consult Urology Routine Ordered Studies 09/01/19 00:27 CT abd pelvis wo con Urgent 09/02 KUB Hospital Course (1) Right distal ureteral calculus: Right distal 3 mm ureteral calculus with mild hydronephrosis of right kidney on CT a/p on 09/01. Given 1L NSS x 2. Given ceftriaxone for possible UTI, although urine culture without growth. Urology consulted. Urine strained. Repeat KUB on 09/02 without evidence of stone. Pain improved. Cr did rise to 1.46 despite fluids. Repeat BMP in 3 days and follow up with Urology with repeat KUB prior to appointment. Continued on flomax. (2) Hydronephrosis of right kidney: See above (3) Chronic prostatitis: Patient recently started on trimethoprim on 08/21/2019 with plan for 30-day treatment -- on hold while receiving ceftriaxone, and resumed at discharge (4) Kidney stone on left side: Patient's previous kidney stones on the left side Reported it took 3 days to pass, but did not require stent placement. Patient expressed desire to avoid intervention if possible. Discharged home with flomax, zofran --> plans for Urology outpatient follow up. Total Time Total Time Spent Total Time Spent (In Minutes): 60 Discharge Plan Discharge Items Patient Disposition: Home - Self-Care Reason For Visit: RIGHT DISTAL URETERAL CALCULUS,MILD R HYDRO Discharge Diagnosis: Right Sided Kidney Stone Condition on Discharge: Good Goals: You have been hospitalized for an acute medical problem. During your stay at [facility], we have made an effort to correct the problem that brought you to the hospital while keeping you as comfortable as possible. Medications were used to bring your condition under control and your discharge instructions will include directions for any medications you should take after leaving the hospital. Please make sure you see your Primary Care Provider as part of your follow up plan. Activity: Resume your previous activity Non-emergency contact: Primary Care Provider and Urologist Call non-emergency contact if: you have any medication questions, your symptoms worsen, your pain is not controlled, your pain is worsening, your pain is unusual for you, your pain is concerning for you, you have a fever and your temperature is above 101 Follow-up/Referrals: Delgado Roberts MD [Physician] - (Patient stated he will schedule his own F/U appointment) PCPGARETH [Primary Care Provider] - (Patient stated he will schedule his own F/U appointment) Diet: Regular Ambulatory Orders: Basic Metabolic Panel (Routine) Timeframe: 3 Days Location: Determined by Patient Ordered By: Perri Vincent Attending Provider Instructions: You have been hospitalized for a right sided kidney stone. On repeat imaging this morning, there was not visualization of a stone previously seen, however your pain was resolved and the stone has likely passed into your bladder. You are being discharged with flomax to help with dilation and passage of the stone. You should continue to strain your urine. You creatinine was found to be elevated (measurement of kidney function) that is likely due to the stone (s). You have been provided a lab order for repeat lab work in the next three days. You should continue to push oral fluids to ensure proper hydration. You have also been sent a prescription for zofran (ondansetron) to use as needed for nausea. These dissolve under your tongue. For pain, you should use acetaminophen (tylenol). You should AVOID NSAIDs (ibuprofen, aleve, motrin, etc) as these tend to increase damage to the kidneys and given the increase in your creatinine, these should be avoided for now. Please follow up with your primary care provider in the next 7-10 days. Follow up with Urology. They should call with an appointment and will have you do repeat imaging (called a 'KUB') prior to your appointment. If you have any questions, please call their office at [phone]. Please return to the emergency department if you develop fever, chills, pain or for any symptoms that are concerning for you. It has been a pleasure being a part of the medical team providing for you while you have been in the hospital. Take care! Pending Studies at Discharge: No Stand-Alone Forms: [employer], Opioid Pain Management, Work/School Release (Inpt), Smoking Cessation Medications and DC Order Prescriptions: New tamsulosin 0.4 mg Capsule 0.4 mg PO DAILY 7 Days Qty: 7 RF: 0 Continued trimethoprim 100 mg tablet 100 mg PO Q12H 30 Days Qty: 60 RF: 0 multivitamin Tablet 1 tab PO DAILY RF: 0 cholecalciferol (vitamin D3) [Vitamin D3] 2,000 unit Capsule 2,000 unit PO DAILY RF: 0 No Action pantoprazole 40 mg Tablet,Delayed Release (Dr/Ec) 40 mg PO QAM 30 Days Qty: 30 RF: 0 ondansetron HCl [Zofran] 4 mg tablet 4 mg PO Q8H PRN (Reason: nausea and vomiting) 4 Days Qty: 12 RF: 0 hydrocodone-acetaminophen 5-325 mg tablet 1 tab PO Q6H PRN (Reason: pain) Qty: 25 RF: 0 Discharge Orders: Discharge Order (Routine); Ordered 09/02/19 Ordered By: Perri Johansen/Other Patient Handouts: Healthy Kidneys, Kidney Health Monitor, Kidney Function, Hydronephrosis Admission Data Admit Date/Time: 09/01/19 03:27 Attending Provider: Flo Angulo Admit Provider: Andrey Brunson Primary Care Provider: PCP,NO Other Providers: Bulmaro Angulo I. Other Interventions: Discharge Summary Assessment (RN) Last Done: 09/02/19 15:20 DC Date/Time DO NOT enter until pt leaves facility: 09/02/19 16:22 Supervising Physician Co-Signing Physician Notes PA Supervision Note: I personally saw and examined the patient. I verified all gonsales points and agree with JACQUELIN Mckeon with the following exceptions and/or additions: Pt feeling much improved, no flank pain at all, no N/V, is tolerating a liquids diet, wants to go home. 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 F/u with Urology as outpt Return if has severe pain or N/V again. VSS NAD, AAOx3 RRR no mgr CTAB no wcr +BS soft NT ND, no CVA ttp Ext no edema STable for dc to home for rt 3mm ureterolithiasis with ydro, ASH, now resolved symptoms. Stone may have passed into bladder. Strain urine at home Coding Level of Care Code D/C Day Management >30 mins Diagnoses Right distal ureteral calculus N20.1 Hydronephrosis of right kidney N13.30 Chronic prostatitis N41.1 Kidney stone on left side N20.0
== END 2019-09-02 16:22 | disposition home or self-care (01) | DRG 694 ==
LOC: ED 00:07 → 3N 03:27 → SUATTDRO 03:27 → 3N 03:54
DX: N13.2 Hydronephrosis with renal and ureteral calculous obstruction; R11.2 Nausea with vomiting, unspecified; I10 Essential (primary) hypertension; N28.9 Disorder of kidney and ureter, unspecified; N41.1 Chronic prostatitis

== ENCOUNTER 2019-09-02 20:41 | Inpatient (IN) ==
[2019-09-02 22:45] LABS: Hematocrit (blood only) 45.5 % (42-52); Hemoglobin 16.6 g/dL (14.0-18.0); Mean Corpuscular Hemoglobin 31.6 pg (25-34); Mean Corpuscular Hgb Conc 36.5 g/dL (32-36); Mean Corpuscular Volume 86.7 fL (80-100); Mean Platelet Volume 12.5 fL (7.4-10.4); Platelet Count 205 K/uL (130-400); RDW Coefficient of Variation 11.8 % (11.5-14.5); RDW Standard Deviation 37.7 fL (36.4-46.3); Red Blood Count 5.25 M/uL (4.7-6.1); White Blood Count 11.22 K/uL (4.8-10.8)
[2019-09-02] MEDS ORDERED: HYDROmorphone INJ 0.5 MG/0.5 ML SYR IV STA (22:52)
[2019-09-02] MEDS ORDERED: SODIUM CHLORIDE 0.9% 1000ML 1,000 ML IV ONE (22:52)
[2019-09-02] MEDS ORDERED: ONDANSETRON INJ 2 MG/ML 2 ML VIAL IV STA (22:52)
[2019-09-02] MEDS ORDERED: MoRPHine SULFATE 10 MG/ML CARP/VIAL IV STA (22:54)
[2019-09-02] MEDS ORDERED: MoRPHine SULFATE 4 MG/ML 1 ML CARP\\VIAL ONE (23:04)
[2019-09-02] MEDS ORDERED: MoRPHine SULFATE 2 MG/ML CARP ONE (23:04)
[2019-09-02 23:05] LABS: BUN Creatinine Ratio 10.1 (10-20); Calcium 9.7 mg/dl (8.5-10.1); Creatinine Clr Calc Pharmacy 59.3 ml/min; Est GFR (African American) 58.4; Est GFR (Non-African American) 50.4; Potassium 3.6 mmol/L (3.5-5.1)
[2019-09-03] MEDS ORDERED: MoRPHine SULFATE 10 MG/ML CARP/VIAL IV STA (00:29)
[2019-09-03] MEDS ORDERED: ONDANSETRON INJ 2 MG/ML 2 ML VIAL IV STA (00:29)
[2019-09-03] MEDS ORDERED: PROMETHAZINE HCL 12.5 MG in SODIUM CHLORIDE 0.9% 50 ML IV STA (00:30)
[2019-09-03] MEDS ORDERED: MoRPHine SULFATE 4 MG/ML 1 ML CARP\\VIAL ONE (00:34)
[2019-09-03] MEDS ORDERED: PROMETHAZINE 12.5 MG/50.5 ML NSS IV ONE (00:34)
[2019-09-03] MEDS ORDERED: MoRPHine SULFATE 2 MG/ML CARP ONE (00:35)
[2019-09-03 00:37] LABS: Appearance Urine Clear (Clear); Bilirubin Urine Negative (Negative); Blood Urine Negative (Negative); Color Urine Yellow; Glucose Urine UA Negative (Negative); Ketones Urine 2+ (Negative); Leukocyte Esterase Urine Negative (Negative); Nitrite Urine Negative (Negative); Protein Urine Negative (Negative); Specific Gravity Urine 1.013 (1.000-1.030); Urobilinogen Urine Negative (Negative); pH Urine 7.5 (4.5-7.5)
[2019-09-03] MEDS ORDERED: SODIUM CHLORIDE 0.9% 1000ML 1,000 ML IV SCH (01:02)
--- NOTE | 2019-09-03 01:14 | History & Physical Report ---
Date of Service September 03, 2019 Assessment & Plan (1) Right distal ureteral calculus: 3 mm distal right ureteral calculus/mild right hydroureteronephrosis/chronic prostatitis- We will give a total of 2 L normal saline bolus in the ED, followed by 150 mils per hour. Follow urine culture and sensitivities. Continue Flomax started at previous mention Morphine sulfate 4 mg IV every 3 hours as needed severe pain. Acetaminophen 1000 mg IV every 8 hours PRN mild pain or temperature. Zofran 4 mg IV every 6 hours as needed. Compazine 10 mg IV every 6 hours PRN. Of note, patient refused Dilaudid while in the ED this time, reporting that he was given Dilaudid at last admission and it caused nausea and vomiting, however, I cannot verify administration of this medication. Consult urology Patient expressed a desire at last admission to not have any procedures done, however, I discussed with him that it may be more strongly suggested that a ureteral stent be placed, with the ultimate choice up to him. He is aware that the longer he leaves the kidney stone in place, the greater the chance there is for more permanent renal injury. Present on Admission?: Yes (2) Hydronephrosis of right kidney: See above Present on Admission?: Yes (3) Chronic prostatitis: Trimethoprim will again be held, as patient will be on ceftriaxone IV Present on Admission?: Yes (4) ASH (acute kidney injury): Creatinine upon admission 1.69, with previous range 1.09-1.46. He is received 1 L of normal saline in the ED, will give a second liter bolus, and then place on NSS at 150 mils per hour. Repeat laboratories in a.m. Present on Admission?: Yes (5) Hypertension: Hydralazine 10 mg IV every 4 hours PRN systolic blood pressure above 160 Present on Admission?: Yes History of Present Illness Chief Complaint: The patient presents to the emergency department after being discharged from the hospital earlier in the day with recurrent flank pain, nausea and vomiting. Primary Care Provider: NO PCP The patient is a 38-year-old male with a past medical history including chronic prostatitis, previous kidney stone on the left side, urinary tract infection who was recently admitted from 09/01-09/02/2019 for a 3 mm distal right ureteral calculus with mild right hydronephrosis. His symptoms had resolved, and there was no stone visible on KUB, and the patient was discharged earlier in the day on 09/02. However, the patient developed recurrent nausea, vomiting and flank pain while at home, and work-up in the emergency department tonight included a renal ultrasound which redemonstrated the 3 mm distal ureteral stone, and persistent mild right hydronephrosis. Allergies Allergy/AdvReac Type Severity Reaction Status Date / Time ketorolac [From Toradol] AdvReac decrease Verified 09/02/19 23:10 kidney function Home Medications Home Medications Medication Instructions Recorded Confirmed Type cholecalciferol (vitamin D3) 2,000 unit PO DAILY 10/08/18 09/02/19 History [Vitamin D3] multivitamin 1 tab PO DAILY 10/08/18 09/02/19 History trimethoprim 100 mg tablet 100 mg PO Q12H 30 Days #60 tab 08/21/19 09/02/19 Rx ondansetron 4 mg PO DAILY PRN 7 Days #7 tab 09/02/19 09/02/19 Rx tamsulosin 0.4 mg PO DAILY 7 Days #7 cap 09/02/19 09/02/19 Rx Past Med/Surg History Medical History Hypertension Kidney stones Surgical History No history of previous surgery Family History Grandmother Hypertension Grandfather Cancer Social History Preferred Language: Portuguese Communication Ability: Effective Instructor Physical Education Required: No Beliefs That Will Affect Care: None marital status: Current Living Situation: Alone Current Living Situation Comment: FRIEND current occupational status: employed 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 Feels Safe at Home: Yes Smoking Status: Never smoker Do You Dip or Chew Tobacco: No ; Second Hand Exposure: No ; Hx Alcohol Use: Yes Alcohol type: beer, wine and hard liquor Hx Substance Use: No Review of Systems Review of Systems: The patient denies chest pain, palpitations, shortness of breath, dyspnea on exertion, cough, lower extremity swelling, sore throat, fevers, chills, sweats, diarrhea , constipation, blood in urine or stool, dysuria, urinary frequency or urgency, lightheadedness, dizziness, headache, memory loss, loss of consciousness, rash, abnormal bruising or bleeding, imbalance, focal or generalized weakness, numbness or tingling in arms or legs, generalized arthralgias or myalgias, back or neck pain, or night sweats. The review of systems is otherwise negative other than for that already noted above, and at least 10 systems have been reviewed. Physical Exam Physical Exam: The patient is awake, alert and oriented 3, well developed and well nourished, normocephalic and atraumatic, lying in bed on his side, with intermittent vomiting. HEENT--PERRL, EOMI, mucous membranes and oropharynx dry. Neck--supple. No JVD. No bruits. Thyroid normal, trachea midline, no adenopathy. Heart--normal S1 and S2. No murmurs, rubs or gallops. Lungs--clear bilaterally, no respiratory distress, no accessory muscle use. Abdomen--normal bowel sounds and soft. Generalized tenderness from vomiting. Nondistended Extremities--no cyanosis or clubbing. No edema. Dermatologic--normal skin turgor, normal color, no abnormal lymph nodes, no rash. Neurologic--cranial nerves II through XII grossly intact. Rheumatologic--normal range of motion. Psychiatric--normal affect. Results & Data Vital Signs (Past 12 Hours) Vital Signs Temp Pulse Pulse Resp BP BP Pulse Ox 09/03/19 00:45 75 18 133/79 100 09/02/19 23:13 65 18 140/76 100 09/02/19 20:59 98.4 F 62 16 141/83 H 100 Laboratory Results Laboratory Results WBC 11.22 K/uL (4.8-10.8) H 09/02/19 22:30 RBC 5.25 M/uL (4.7-6.1) 09/02/19 22:30 Hgb 16.6 g/dL (14.0-18.0) 09/02/19 22:30 Hct 45.5 % (42-52) 09/02/19 22:30 MCV 86.7 fL (80-100) 09/02/19 22:30 MCH 31.6 pg (25-34) 09/02/19 22:30 MCHC 36.5 g/dL (32-36) H 09/02/19 22:30 RDW Std Deviation 37.7 fL (36.4-46.3) 09/02/19 22:30 RDW Coeff of Uri 11.8 % (11.5-14.5) 09/02/19 22:30 Plt Count 205 K/uL (130-400) 09/02/19 22:30 MPV 12.5 fL (7.4-10.4) H 09/02/19 22:30 Sodium 135 mmol/L (136-145) L 09/02/19 22:30 Potassium 3.6 mmol/L (3.5-5.1) 09/02/19 22:30 Chloride 102 mmol/L (98-107) 09/02/19 22:30 Carbon Dioxide 24 mmol/L (21-32) 09/02/19 22:30 Anion Gap 9.0 (3-11) 09/02/19 22:30 BUN 17 mg/dl (7-18) 09/02/19 22:30 Creatinine 1.69 mg/dl (0.6-1.4) H 09/02/19 22:30 Est Cr Clr Drug Dosing 59.3 ml/min 09/02/19 22:30 Est GFR ( Amer) 58.4 09/02/19 22:30 Est GFR (Non-Af Amer) 50.4 09/02/19 22:30 BUN/Creatinine Ratio 10.1 (10-20) 09/02/19 22:30 Glucose 104 mg/dl (70-99) H 09/02/19 22:30 Calcium 9.7 mg/dl (8.5-10.1) D 09/02/19 22:30 Urine Color Yellow 09/03/19 00:07 Urine Appearance Clear (Clear) 09/03/19 00:07 Urine pH 7.5 (4.5-7.5) 09/03/19 00:07 Ur Specific [place] 1.013 (1.000-1.030) 09/03/19 00:07 Urine Protein Negative (Negative) 09/03/19 00:07 Urine Glucose (UA) Negative (Negative) 09/03/19 00:07 Urine Ketones 2+ (Negative) H 09/03/19 00:07 Urine Blood Negative (Negative) 09/03/19 00:07 Urine Nitrite Negative (Negative) 09/03/19 00:07 Urine Bilirubin Negative (Negative) 09/03/19 00:07 Urine Urobilinogen Negative (Negative) 09/03/19 00:07 Ur Leukocyte Esterase Negative (Negative) 09/03/19 00:07 Diagnostic Findings [facility] Patient: KAY CARRION (Male) : 80 Status: ER Date: 09/03/19 00:14 Room #: History: right flank pain. elevated creat Slices: 44 Priors: CT 09/01/19 Tech: Judy Sanjana @ [phone] Exams: US RENAL Accession Numbers: [id number] Preliminary Findings Only See Final Report For Complete Findings US RENAL: Compared to CT abdomen and pelvis of 09/01/19. Redemonstrated 3 mm distal right ureteral calculus causing mild hydronephrosis Radiologist: Adryan Burch M.D. Study ready at 00:19 and initial results transmitted at 00:25 *This report constitutes a preliminary interpretation only. Non-acute findings felt to be unrelated to the clinical presentation may not be discussed in this report. The study will be interpreted and a final report will be generated by the local Radiologist the following shift. To reach the hospital radiology department call [phone]. If a discrepancy is found between the preliminary and final interpretations of this study, please notify us via our Client Portal at [email or web address].You can also fax this report with a description of the discrepancy, or include the final report, to our daytime fax number [phone].If faxing, please indicate the severity of discrepancy using one of the following categories: [ ] 1 - Agree/Informational [ ] 2 - Unlikely to Affect Management [ ] 3 - Possible Eventual Change of Management [ ] 4 - Probable Immediate Change of Management For all other patient related information, please fax us at [phone]. [id number] Code Status & VTE Plan Code Status Full code VTE Prophylaxis Plan VTE Prophylaxis will be ordered: Yes PG Care Time/CCT Total # of Minutes Spent Total Time Spent with Patient: Total time spent is greater than 50% in coordination of care (as documented) at patient's floor/unit and/or counseling patient: Coding Level of Care Code 22160 Initial Inpt Care Lvl 2 Diagnoses Right distal ureteral calculus N20.1 Hydronephrosis of right kidney N13.30 Chronic prostatitis N41.1 ASH (acute kidney injury) N17.9 Hypertension I10
[2019-09-03] MEDS: SODIUM CHLORIDE 0.9% 1000ML 1,000 ML IV SCH ×4 (02:59→21:07)
[2019-09-03] MEDS ORDERED: HydrALAZINE HCL 20 MG/ML VIAL IV PRN (03:25)
[2019-09-03] MEDS: ALUM HYDROX/MAG TRISILICATE CHEW PO PRN ×2 (06:33→11:44)
[2019-09-03] MEDS: ACETAMINOPHEN 1,000 MG/100 ML VIAL IV PRN (06:36)
--- NOTE | 2019-09-03 06:37 | Ultrasound Report ---
US renal/blad retro comp HISTORY: 38 years-old Male right flank pain, elevated creat, ureteral stone acute right-sided flank pain with ureteral calculus COMPARISON: CT abdomen pelvis 09/01/2019 TECHNIQUE: Multiple real-time sonographic images of the kidneys and urinary bladder were obtained ass essing grayscale appearance and color flow FINDINGS: The right kidney measures 11.7 x 8.2 x 5.4 cm demonstrates persistent mild hydronephrosis. The proxim al right ureter is obscured by bowel gas. No right-sided renal calculi or suspicious mass lesions sivakumar ntified. Urinary bladder is unremarkable. Only the left ureteral jet identified. The previously described 3 mm calculus of the distal right ureter appears unchanged and is noted 1.8 cm proximal to the ureteroves icular junction. Distal ureters dilated measuring up to 5 mm. Left kidney measures 10.7 x 5.8 x 4.9 cm and is unremarkable without renal calculi, hydronephrosis or suspicious mass lesion. Spleen is mildly enlarged, 14.0 cm in length. IMPRESSION: 1. Persistent mild right-sided hydroureteronephrosis secondary to a 3 mm obstructing calculus of the distal right ureter which is in unchanged positioning. 2. Unremarkable sonographic appearance of the left kidney and urinary bladder. ACT 112: Negative or not required by law. The above report was generated using voice recognition software. It may contain grammatical, syntax o r spelling errors. Electronically signed by: Ravindra Tucker M.D. 09/03/2019 6:36 AM
[2019-09-03] MEDS: ONDANSETRON INJ 2 MG/ML 2 ML VIAL IV PRN ×3 (06:39→22:08)
--- NOTE | 2019-09-03 07:52 | Urology Consultation ---
Date of Consultation September 03, 2019 Assessment & Plan (1) ASH (acute kidney injury): (2) Right distal ureteral calculus: (3) Ureteral colic: 38-year-old male patient with obstructing right distal 3 mm ureteral stone, ASH, and renal colic. -Patient readmitted overnight due to intractable flank pain and nausea. -Currently NPO. -Creatinine elevated on admission 1.69 - repeat this am 1.47. -Continue IV fluids, Flomax, and pain control. -Continue to monitor renal function. -No available urine culture, urinalysis not indicative of infection. -Patient prefers to defer surgical intervention today if possible. -Case discussed with Dr. Castle who did contact patient's brother per his request. -Discussed risks/benefits of surgical procedure in addition to risks without surgical intervention. -Patient accepts risks and verbalizes understanding, all questions answered. -Okay to advance diet as tolerated and make NPO at midnight. -Plan to reassess in AM. Please consult our service urgently if patient develops fever >101F, intractable pain or vomiting, as this will necessitate urgent surgical intervention. Thank you for the consultation and we will continue to monitor closely with primary service. History of Present Illness Reason for Consultation: Distal right ureteral stone with mild hydronephrosis Attending Physician: Marisa Brush MD History of Present Illness 38 year-old male, known to our service, re-admitted overnight for a distal 3 mm right ureteral stone, intractable pain, and nausea. Patient was recently admitted to [facility] 09/01/19 until 09/02/19 for 3 mm obstructing right distal ureteral stone noted on CT. His pain and nausea had resolved day of discharge and KUB did not show evidence of stone and was subsequently discharged with recommended max expulsion therapy. Patient returned to ER last evening with recurrence of nausea and severe right flank pain. Patient denied vomiting, fevers, or chills. Of note, patient has history of single prior stone which was passed shortly before a planned ESWL. Chart review: Afebrile. On admission, wbc 11.22 and creatinine 1.69. Urinalysis without leukocytes or nitrates. Renal ultrasound: 1. Persistent mild right-sided hydroureteronephrosis secondary to a 3 mm obstructing calculus of the distal right ureter which is in unchanged positioning. 2. Unremarkable sonographic appearance of the left kidney and urinary bladder. Patient examined this morning, alert and awake. Has had intermittent episodes of vomiting requiring PRN Zofran. Receiving IV morphine as needed for right flank pain. Denies pain at time of exam. Denies fevers or chills. Afebrile on chart review. Patient voiding spontaneously without difficulty. Denies hematuria, dysuria, urgency, or frequency. He is hesitant for surgical intervention as he wants to try and pass stone on his own. Allergies Allergy/AdvReac Type Severity Reaction Status Date / Time ketorolac [From Toradol] AdvReac decrease Verified 09/02/19 23:10 kidney function Home Medications Home Medications Medication Instructions Recorded Confirmed Type cholecalciferol (vitamin D3) 2,000 unit PO DAILY 10/08/18 09/02/19 History [Vitamin D3] multivitamin 1 tab PO DAILY 10/08/18 09/02/19 History trimethoprim 100 mg tablet 100 mg PO Q12H 30 Days #60 tab 08/21/19 09/02/19 Rx ondansetron 4 mg PO DAILY PRN 7 Days #7 tab 09/02/19 09/02/19 Rx tamsulosin 0.4 mg PO DAILY 7 Days #7 cap 09/02/19 09/02/19 Rx Patient History Medical History Hypertension Kidney stones Surgical History No history of previous surgery Family History Grandmother Hypertension Grandfather Cancer Social History Preferred Language: Croatian Communication Ability: Effective Zipper Machine Operator Required: No Beliefs That Will Affect Care: None marital status: Current Living Situation: Alone Current Living Situation Comment: FRIEND current occupational status: employed 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 Respiratory: normal respiratory effort and able to speak in complete sentences; no respiratory distress and no audible wheezes Gastrointestinal (Abdomen): Inspection/Auscultation: abdomen normal to inspection; abdomen not distended Percussion/Palpation: abdomen soft; abdomen nontender and no guarding Psychiatric: Orientation: alert, oriented x 3 and cooperative Affect: euthymic affect Genitourinary: no CVA tenderness Results & Data Vital Signs (Past 12 Hours) Vital Signs Temp Pulse Pulse Pulse Resp BP BP 09/03/19 07:15 36.9 C 59 L 19 148/81 H 09/03/19 02:08 37.1 C 63 16 159/78 H 09/03/19 01:37 62 18 140/77 09/03/19 00:45 75 18 133/79 09/02/19 23:13 65 18 140/76 09/02/19 20:59 36.9 C 62 16 141/83 H Pulse Ox 09/03/19 07:15 99 09/03/19 02:08 97 09/03/19 01:37 100 09/03/19 00:45 100 09/02/19 23:13 100 09/02/19 20:59 100 PG Care Time/CCT Total # of Minutes Spent Total Time Spent with Patient: Total time spent is greater than 50% in coordination of care (as documented) at patient's floor/unit and/or counseling patient: Coding Level of Care Code 80354 Inpt Consult Level 3 Diagnoses ASH (acute kidney injury) N17.9 Right distal ureteral calculus N20.1 Ureteral colic N23
[2019-09-03] MEDS: MoRPHine SULFATE 4 MG/ML 1 ML CARP\\VIAL IV PRN ×5 (08:37→22:37)
[2019-09-03] MEDS: TAMSULOSIN HCL 0.4 MG CAP PO SCH (08:38)
[2019-09-03 08:46] LABS: Hematocrit (blood only) 42.6 % (42-52); Hemoglobin 15.2 g/dL (14.0-18.0); Mean Corpuscular Hemoglobin 30.7 pg (25-34); Mean Corpuscular Hgb Conc 35.7 g/dL (32-36); Mean Corpuscular Volume 86.1 fL (80-100); Mean Platelet Volume 12.4 fL (7.4-10.4); Platelet Count 162 K/uL (130-400); RDW Coefficient of Variation 11.8 % (11.5-14.5); Red Blood Count 4.95 M/uL (4.7-6.1); White Blood Count 11.03 K/uL (4.8-10.8)
[2019-09-03] MEDS: cefTRIAXone SODIUM 1,000 MG in DEXTROSE 5% 50 ML IV SCH (08:46)
[2019-09-03 09:29] LABS: BUN Creatinine Ratio 9.7 (10-20); Calcium 8.2 mg/dl (8.5-10.1); Creatinine Clr Calc Pharmacy 68.1 ml/min; Est GFR (African American) 69.1; Est GFR (Non-African American) 59.7; Potassium 4.1 mmol/L (3.5-5.1)
[2019-09-03] MEDS ORDERED: METOCLOPRAMIDE HCL INJ 5 MG/ML 2 ML VIAL IV ONE (11:49)
--- NOTE | 2019-09-03 12:59 | History & Physical Bridge Note ---
Date of Service September 03, 2019 History & Physical Bridge Note I have examined the patient, reviewed the History & Physical and in the interval since the performance of the History & Physical I have noted the following changes of clinical significance: Per patient request, will wait to see if stone passes today and keep NPO after midnight for possible intervention in AM. Ordered phenergan IV for nausea as patient not due for zofran. Continues to have right sided pain, controlled with morphine. Supervising Physician Co-Signing Physician Notes PA Supervision Note: I did not personally see or examine the patient today, but I verified all gonsales points of JACQUELIN Mckeon's assessment and plan with the following exceptions/additions: None
[2019-09-03] MEDS: PROMETHAZINE HCL 12.5 MG in SODIUM CHLORIDE 0.9% 50 ML IV PRN (19:07)
[2019-09-03] MEDS: TAMSULOSIN HCL 0.4 MG CAP PO ONE ×2 (21:08→22:08)
[2019-09-04] MEDS: SODIUM CHLORIDE 0.9% 1000ML 1,000 ML IV SCH ×4 (01:44→19:27)
[2019-09-04] MEDS: ONDANSETRON INJ 2 MG/ML 2 ML VIAL IV PRN ×3 (05:50→22:08)
[2019-09-04] MEDS: MoRPHine SULFATE 4 MG/ML 1 ML CARP\\VIAL IV PRN ×5 (06:14→22:38)
--- NOTE | 2019-09-04 06:15 | Emergency Department Note ---
Entered by May Arriaza acting as a scribe for Loreta Luu MD History of Present Illness General Chief complaint: Kidney Stone Stated complaint: KIDNEY STONES Source: patient History of Present Illness Onset (ago): hour(s) 3 Location: back (right flank ) Severity: similar to prior episodes Pain Consistency: + other (persistent ) Maximum Pain Intensity: 7 Associated symptoms: + nausea/vomiting (positive nausea) Treatments prior to arrival: other (nausea medication) The patient is a 38 year old male who presents to the Emergency Room with complaints of persistent right flank pain that began 3 hours prior to arrival. The patient states that he was in the ED yesterday and was admitted for a right- sided kidney stone. The patient states that it was thought that he passed this stone and he was discharged home. He states that his pain and nausea then returned. He reports that he was given nausea medications but no pain medications. The patient states that his symptoms are similar to his prior episode of pain. Home Medications Home Medications Medication Instructions Recorded Confirmed Type cholecalciferol (vitamin D3) 2,000 unit PO DAILY 10/08/18 09/02/19 History [Vitamin D3] multivitamin 1 tab PO DAILY 10/08/18 09/02/19 History trimethoprim 100 mg tablet 100 mg PO Q12H 30 Days #60 tab 08/21/19 09/02/19 Rx ondansetron 4 mg PO DAILY PRN 7 Days #7 tab 09/02/19 09/02/19 Rx tamsulosin 0.4 mg PO DAILY 7 Days #7 cap 09/02/19 09/02/19 Rx Allergies Allergy/AdvReac Type Severity Reaction Status Date / Time ketorolac [From Toradol] AdvReac decrease Verified 09/02/19 23:10 kidney function Past Med/Surg History Medical History Hypertension Kidney stones Surgical History No history of previous surgery Family History Grandmother Hypertension Grandfather Cancer Social History Preferred Language: [place] Communication Ability: Effective Operations Specialists Required: No Beliefs That Will Affect Care: None marital status: Current Living Situation: Alone Current Living Situation Comment: FRIEND current occupational status: employed 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 and A total of 10 systems reviewed and were otherwise negative Physical Exam Vital Signs Vital Signs - 24 hr 09/02/19 20:59 09/02/19 23:13 09/03/19 00:45 Temperature 98.4 F Temperature Source Oral Pulse Rate 62 Pulse Rate [Apical] 65 75 Respiratory Rate 16 18 18 Blood Pressure 141/83 H Blood Pressure [Left Arm] 140/76 133/79 Blood Pressure Mean 102 Blood Pressure Mean [Left Arm] 97 97 Pulse Oximetry 100 100 100 Oxygen Delivery Method Room Air Room Air Room Air Sepsis Recent Fever Within 48 Hours No Sepsis New/Unexplained Change in Mental Status No Sepsis Action Taken by Nursing No Action Required Vital signs reviewed. General: Anxious-appearing 38 year old male, in significant discomfort. HEENT: No scleral icterus, PERRLA, neck supple. Atraumatic. Cardiovascular: Regular rate and rhythm, no extra sounds. Pulmonary: Clear to auscultation bilaterally, normal work of breathing. Abdomen: Soft, nontender, nondistended, positive bowel sounds. Musculoskeletal: Atraumatic, no peripheral edema. Mild right CVA tenderness. Neurologic: Patient awake alert and oriented x 3. Skin: Warm, dry, no rash Course Course 2252: Past medical records reviewed. The patient was evaluated in room C6. A complete history and physical exam was performed. 0028: I checked on and updated the patient on all results. 0034: I discussed the case with Dr. [facility] Hospitalist who accepts the patient for further evaluation. Administered Medications Al Hydroxide/Mg Trisilicate (Gaviscon) 1 tab PO Q4H PRN PRN Reason: Heartburn Stop: 10/03/19 05:30 Last Admin: 09/03/19 11:44 Dose: 1 tab Documented by: [id number] Admin: 09/03/19 06:33 Dose: 1 tab Documented by: [id number] Acetaminophen (Ofirmev) 1,000 mg in 100 mls @ 400 mls/hr IV Q8H PRN PRN Reason: Pain or Fever Stop: 09/06/19 02:03 Last Infusion: 09/04/19 14:26 Dose: 0 mls/hr Documented by: [id number] Admin: 09/04/19 14:12 Dose: 400 mls/hr Documented by: [id number] Infusion: 09/03/19 06:51 Dose: 0 mls/hr Documented by: [id number] Admin: 09/03/19 06:36 Dose: 400 mls/hr Documented by: [id number] Sodium Chloride (Nss 1000ml) 1,000 mls @ 200 mls/hr IV .Q5H RAMON Stop: 10/03/19 02:44 Last Admin: 09/04/19 12:17 Dose: 200 mls/hr Documented by: [id number] Infusion: 09/04/19 10:34 Dose: 0 mls/hr Documented by: [id number] Admin: 09/04/19 06:16 Dose: 200 mls/hr Documented by: [id number] Infusion: 09/04/19 06:16 Dose: 200 mls/hr Documented by: [id number] Admin: 09/04/19 01:44 Dose: 200 mls/hr Documented by: [id number] Infusion: 09/04/19 01:44 Dose: 200 mls/hr Documented by: [id number] Admin: 09/03/19 21:07 Dose: 200 mls/hr Documented by: [id number] Infusion: 09/03/19 21:07 Dose: 200 mls/hr Documented by: [id number] Infusion: 09/03/19 17:26 Dose: 200 mls/hr Documented by: [id number] Admin: 09/03/19 15:47 Dose: 150 mls/hr Documented by: [id number] Infusion: 09/03/19 15:47 Dose: 200 mls/hr Documented by: [id number] Infusion: 09/03/19 14:35 Dose: 150 mls/hr Documented by: [id number] Admin: 09/03/19 09:27 Dose: 150 mls/hr Documented by: [id number] Infusion: 09/03/19 09:27 Dose: 150 mls/hr Documented by: [id number] Admin: 09/03/19 02:59 Dose: 150 mls/hr Documented by: [id number] Ceftriaxone Sodium 1,000 mg/ (Dextrose) 60 mls @ 100 mls/hr IV DAILY RAMON; Protocol Stop: 09/13/19 08:59 Last Infusion: 09/04/19 09:27 Dose: 0 mls/hr Documented by: [id number] Admin: 09/04/19 08:55 Dose: 100 mls/hr Documented by: [id number] Infusion: 09/03/19 09:30 Dose: 0 mls/hr Documented by: [id number] Admin: 09/03/19 08:46 Dose: 100 mls/hr Documented by: [id number] Promethazine HCl 12.5 mg/ (Sodium Chloride) 50.5 mls @ 202 mls/hr IV Q6H PRN PRN Reason: Nausea And Vomiting Stop: 10/03/19 15:43 Last Infusion: 09/04/19 07:51 Dose: 0 mls/hr Documented by: [id number] Admin: 09/04/19 07:27 Dose: 202 mls/hr Documented by: [id number] Infusion: 09/03/19 19:31 Dose: 0 mls/hr Documented by: [id number] Admin: 09/03/19 19:07 Dose: 202 mls/hr Documented by: [id number] Morphine Sulfate (Morphine Sulfate) 4 mg IV Q3H PRN PRN Reason: Severe Pain Stop: 09/17/19 02:03 Last Admin: 09/04/19 14:12 Dose: 4 mg Documented by: [id number] Admin: 09/04/19 08:56 Dose: 4 mg Documented by: [id number] Admin: 09/04/19 06:14 Dose: 4 mg Documented by: [id number] Admin: 09/03/19 22:37 Dose: 4 mg Documented by: [id number] Admin: 09/03/19 19:07 Dose: 4 mg Documented by: [id number] Admin: 09/03/19 15:46 Dose: 4 mg Documented by: [id number] Admin: 09/03/19 12:12 Dose: 4 mg Documented by: [id number] Admin: 09/03/19 08:37 Dose: 4 mg Documented by: [id number] Ondansetron HCl (Zofran) 4 mg IV Q6H PRN PRN Reason: Nausea Stop: 10/03/19 02:03 Last Admin: 09/04/19 14:12 Dose: 4 mg Documented by: [id number] Admin: 09/04/19 05:50 Dose: 4 mg Documented by: [id number] Admin: 09/03/19 22:08 Dose: 4 mg Documented by: [id number] Admin: 09/03/19 15:47 Dose: 4 mg Documented by: [id number] Admin: 09/03/19 06:39 Dose: 4 mg Documented by: [id number] Pantoprazole Sodium (Protonix) 40 mg PO QAM RAMON Stop: 09/07/19 09:01 Last Admin: 09/04/19 12:31 Dose: 40 mg Documented by: [id number] Polyethylene Glycol (Miralax Powder Packet) 17 gm PO DAILY RAMON Stop: 10/04/19 11:29 Last Admin: 09/04/19 12:17 Dose: 17 gm Documented by: [id number] Tamsulosin HCl (Flomax) 0.4 mg PO DAILY RAMON Stop: 10/03/19 08:59 Last Admin: 09/04/19 08:55 Dose: 0.4 mg Documented by: [id number] Admin: 09/03/19 08:38 Dose: 0.4 mg Documented by: [id number] Discontinued Medications Docusate Sodium (Colace) 100 mg PO NOW ONE Stop: 09/04/19 11:18 Last Admin: 09/04/19 12:17 Dose: 100 mg Documented by: [id number] Hydromorphone HCl (Dilaudid) 0.5 mg IV NOW STA Stop: 09/02/19 22:53 Last Admin: 09/02/19 23:07 Dose: Not Given Documented by: [id number] Sodium Chloride (Nss 1000ml) 1,000 mls @ 999 mls/hr IV .Q1H1M ONE Stop: 09/02/19 23:52 Last Infusion: 09/03/19 01:23 Dose: 0 mls/hr Documented by: [id number] Admin: 09/02/19 23:06 Dose: 999 mls/hr Documented by: [id number] Promethazine HCl 12.5 mg/ (Sodium Chloride) 50.5 mls @ 202 mls/hr IV NOW STA Stop: 09/03/19 00:44 Last Admin: 09/03/19 00:38 Dose: Not Given Documented by: [id number] Sodium Chloride (Nss 1000ml) 1,000 mls @ 999 mls/hr IV .Q1H1M RAMON Stop: 09/03/19 02:02 Last Infusion: 09/03/19 03:39 Dose: 0 mls/hr Documented by: [id number] Admin: 09/03/19 01:27 Dose: 999 mls/hr Documented by: [id number] Metoclopramide HCl (Reglan) 10 mg IV ONE ONE Stop: 09/03/19 11:50 Last Admin: 09/03/19 12:04 Dose: 10 mg Documented by: [id number] Morphine Sulfate (Morphine Sulfate) 6 mg IV NOW STA Stop: 09/02/19 22:55 Last Admin: 09/02/19 23:07 Dose: Not Given Documented by: [id number] Morphine Sulfate (Morphine Sulfate) Confirm Administered Dose 4 mg .ROUTE .ST- MED ONE Stop: 09/02/19 23:05 Last Admin: 09/02/19 23:07 Dose: 4 mg Documented by: [id number] Morphine Sulfate (Morphine Sulfate) Confirm Administered Dose 2 mg .ROUTE .ST- MED ONE Stop: 09/02/19 23:05 Last Admin: 09/02/19 23:07 Dose: 2 mg Documented by: [id number] Morphine Sulfate (Morphine Sulfate) 6 mg IV NOW STA Stop: 09/03/19 00:30 Last Admin: 09/03/19 00:38 Dose: 6 mg Documented by: [id number] Morphine Sulfate (Morphine Sulfate) Confirm Administered Dose 4 mg .ROUTE .STK- MED ONE Stop: 09/03/19 00:35 Last Admin: 09/03/19 00:39 Dose: Not Given Documented by: [id number] Morphine Sulfate (Morphine Sulfate) Confirm Administered Dose 2 mg .ROUTE .STK- MED ONE Stop: 09/03/19 00:36 Last Admin: 09/03/19 00:39 Dose: Not Given Documented by: [id number] Ondansetron HCl (Zofran) 4 mg IV NOW STA Stop: 09/02/19 22:53 Last Admin: 09/02/19 23:06 Dose: 4 mg Documented by: [id number] Ondansetron HCl (Zofran) 4 mg IV NOW STA Stop: 09/03/19 00:30 Last Admin: 09/03/19 00:32 Dose: Not Given Documented by: [id number] Promethazine HCl (Phenergan) Confirm Administered Dose 12.5 mg IV .STK-MED ONE Stop: 09/03/19 00:35 Last Admin: 09/03/19 00:38 Dose: 12.5 mg Documented by: [id number] Tamsulosin HCl (Flomax) 0.4 mg PO NOW ONE Stop: 09/03/19 20:16 Last Admin: 09/03/19 22:08 Dose: 0.4 mg Documented by: [id number] Medical Decision Making Differential Diagnosis Differential diagnosis: Etiologies such as renal colic, appendicitis, diverticulitis, mesenteric ischemia, aortic pathology, infections, inflammatory bowel disease, PUD, biliary pathology, UTI, as well as others were entertained. Medical Records Attestation: I reviewed the patient's medical records. Home Medications Current Medication List: was personally reviewed by me Laboratory Data Attestation: I reviewed the patient's lab results. Result diagrams: 09/04/19 08:18 09/04/19 08:18 Lab Results 09/02/19 09/02/19 09/03/19 Range/Units 22:30 22:30 00:07 WBC 11.22 H (4.8-10.8) K/uL RBC 5.25 (4.7-6.1) M/uL Hgb 16.6 (14.0-18.0) g/dL Hct 45.5 (42-52) % MCV 86.7 (80-100) fL MCH 31.6 (25-34) pg MCHC 36.5 H (32-36) g/dL RDW Std Deviation 37.7 (36.4-46.3) fL RDW Coeff of Uri 11.8 (11.5-14.5) % Plt Count 205 (130-400) K/uL MPV 12.5 H (7.4-10.4) fL Sodium 135 L (136-145) mmol/L Potassium 3.6 (3.5-5.1) mmol/L Chloride 102 (98-107) mmol/L Carbon Dioxide 24 (21-32) mmol/L Anion Gap 9.0 (3-11) BUN 17 (7-18) mg/dl Creatinine 1.69 H (0.6-1.4) mg/dl Est Cr Clr Drug Dosing 59.3 ml/min Est GFR ( Amer) 58.4 Est GFR (Non-Af Amer) 50.4 BUN/Creatinine Ratio 10.1 (10-20) Glucose 104 H (70-99) mg/dl Calcium 9.7 D (8.5-10.1) mg/dl Urine Color Yellow Urine Appearance Clear (Clear) Urine pH 7.5 (4.5-7.5) Ur Specific [place] 1.013 (1.000-1.030) Urine Protein Negative (Negative) Urine Glucose (UA) Negative (Negative) Urine Ketones 2+ H (Negative) Urine Blood Negative (Negative) Urine Nitrite Negative (Negative) Urine Bilirubin Negative (Negative) Urine Urobilinogen Negative (Negative) Ur Leukocyte Esterase Negative (Negative) Imaging Data Radiologist's Impression: Radiology results as stated below per my review and the radiologist's interpretation: US RENAL: Compared to CT abdomen and pelvis of 09/01/19. Redemonstrated 3 mm distal right ureteral calculus causing mild hydronephrosis Radiologist: Adryan Burch M.D. Study ready at 00:19 and initial results transmitted at 00:25 ECG Data Additional Comments: An order for cardiac monitoring was placed and the patient is found to be in a normal sinus rhythm at 70 bpm. Blood Pressure Blood Pressure Findings: Elevated blood pressure Blood Pressure Disposition: elevated BP felt to be situational MDM Narrative This patient was evaluated and appeared to be in significant discomfort. IV access was obtained and laboratory work was drawn. The patient was placed on the alarm security or surveillance monitor and found to be in a normal sinus rhythm. IV hydration was initiated, the patient was given IV Zofran and IV morphine for his discomfort. Renal ultrasound was performed and is consistent with a distal ureteral stone on the right of approximately 3 mm. Patient's creatinine is on an upward trend now at 1.69. There is a slight leukocytosis at 11.2. Patient had recurrent pain and nausea, he was given additional IV morphine and Zofran. Given the patient's increase in pain, he will be evaluated by the hospitalist service for further management and urologic consultation. Patient is aware of the plan and agrees. Impression & Plan Ureteral colic, Right distal ureteral calculus, ASH (acute kidney injury) Discharge Plan Visit Data *Final* Discharge Date/Time: 09/03/19 01:37 Chief Complaint: Kidney Stone Stated Complaint: KIDNEY STONES ED Provider: Loreta Luu Discharge Problem: Ureteral colic, Right distal ureteral calculus, ASH (acute kidney injury) Patient Disposition: Admitted As Inpatient Discharge Instructions Interventions: ED Discharge Assessment Last Done: 09/03/19 01:37 The scribe's documentation has been prepared under my direction and personally reviewed by me in its entirety. I confirm that the note above accurately reflects all work, treatment, procedures, and medical decision making performed by me.
[2019-09-04] MEDS: PROMETHAZINE HCL 12.5 MG in SODIUM CHLORIDE 0.9% 50 ML IV PRN ×2 (07:27→19:24)
[2019-09-04 08:50] LABS: Basophils # (auto) 0.01 K/uL (0-0.2); Basophils % (auto) 0.1 %; Hematocrit (blood only) 41.6 % (42-52); Hemoglobin 14.9 g/dL (14.0-18.0); Immature Granulocytes # (auto) 0.02 K/uL (0.00-0.02); Immature Granulocytes % (auto) 0.2 %; Lymphocytes # (auto) 0.82 K/uL (1.2-3.4); Lymphocytes % (auto) 8.8 %; Mean Corpuscular Hemoglobin 30.8 pg (25-34); Mean Corpuscular Hgb Conc 35.8 g/dL (32-36); Mean Corpuscular Volume 86.1 fL (80-100); Mean Platelet Volume 12.6 fL (7.4-10.4); Monocytes # (auto) 0.93 K/uL (0.11-0.59); Neutrophils # (auto) 7.55 K/uL (1.4-6.5); Neutrophils % (auto) 80.9 %; Platelet Count 174 K/uL (130-400); RDW Coefficient of Variation 11.7 % (11.5-14.5); RDW Standard Deviation 37.1 fL (36.4-46.3); Red Blood Count 4.83 M/uL (4.7-6.1); White Blood Count 9.33 K/uL (4.8-10.8)
[2019-09-04] MEDS: TAMSULOSIN HCL 0.4 MG CAP PO SCH (08:55)
[2019-09-04] MEDS: cefTRIAXone SODIUM 1,000 MG in DEXTROSE 5% 50 ML IV SCH (08:55)
--- NOTE | 2019-09-04 09:04 | Urology Progress Note ---
Date of Service September 04, 2019 Assessment & Plan (1) Right ureteral calculus: 38 yo M admitted with obstructing right distal 3 mm ureteral stone, ASH, and renal colic. - Creatinine improved today - Continues to have intermittent right flank pain and nausea - Strain all urine - Patient continues to decline intervention at present - No intervention planned today unless requiring urgent intervention - Okay to have clear liquids today if nausea improves, NPO again at [place] to re- evaluate - Continue to monitor patient status closely Please consult our service urgently if patient develops fever >101F, intractable pain or nausea, as this will necessitate urgent surgical intervention. Thank you for the consultation and we will continue to monitor closely with primary service. Subjective Awake, lying in bed. Patient denies stone passage. Reports feeling well overnight, but started having R flank pain early this morning, requiring IV morphine. Reports improvement after pain medication. Nausea and emesis x 1 this morning, reporting some relief after Zofran. Reports mild nausea at this time. Voiding spontaneously. Denies dysuria, urgency, or hematuria. Denies f/c. Tmax 38.0 at 7:50 this am. Creatinine 1.23, WBC 9.33 today. Patient continues to decline intervention at this time. Is hopeful to pass stone spontaneously or schedule outpatient ESWL. Review of Systems Constitutional: as per Subjective / HPI Gastrointestinal: as per Subjective / HPI Genitourinary: + as per Subjective / HPI Physical Exam Constitutional: well developed and well nourished; no acute distress and not ill appearing Respiratory: normal respiratory effort and able to speak in complete sentences; no respiratory distress and no labored breathing Cardiovascular: Extremities: no pedal edema Gastrointestinal (Abdomen): Inspection/Auscultation: abdomen normal to inspection; abdomen not distended Percussion/Palpation: abdomen soft; abdomen nontender and no guarding Neurologic: moves all extremities and awake Psychiatric: Orientation: alert, oriented x 3 and cooperative Genitourinary: no CVA tenderness Results & Data Vital Signs (Past 12 Hours) Vital Signs Temp Pulse Pulse Resp BP Pulse Ox 09/04/19 07:50 38.0 C H 65 16 133/75 97 09/04/19 00:36 37.0 C 72 15 98 09/03/19 23:30 67 143/75 H PG Care Time/CCT Total # of Minutes Spent Total Time Spent with Patient: Total time spent is greater than 50% in coordination of care (as documented) at patient's floor/unit and/or counseling patient: Coding Level of Care Code 64085 Subseq Hosp Care Lvl 2 Diagnoses Right ureteral calculus N20.1
[2019-09-04 09:26] LABS: BUN Creatinine Ratio 8.1 (10-20); Calcium 8.3 mg/dl (8.5-10.1); Creatinine Clr Calc Pharmacy 81.4 ml/min; Est GFR (African American) 85.8; Potassium 3.8 mmol/L (3.5-5.1)
[2019-09-04] MEDS ORDERED: DOCUSATE SODIUM 100 MG CAP PO ONE (11:17)
[2019-09-04] MEDS: POLYETHYLENE (MIRALAX) 17 GM PACK PO SCH (12:17)
[2019-09-04] MEDS: PANTOprazole 40 MG TAB PO SCH (12:31)
[2019-09-04] MEDS: ACETAMINOPHEN 1,000 MG/100 ML VIAL IV PRN (14:12)
--- NOTE | 2019-09-04 14:59 | Hospitalist Progress Note ---
Date of Service September 04, 2019 Assessment & Plan (1) Right distal ureteral calculus: * 3 mm distal right ureteral calculus/mild right hydroureteronephrosis/chronic prostatitis. Given 2L NSS, then IVF increased to 150cc/hr. IVF increased further to 200cc/hr. WBC initially 11.2k on admission. Improved to 9.3k * Cr improved from 1.69 to 1.23 * UA without evidence of infection. No culture sent. * Continue flomax per Urology * Strain all urine * Urology consult -- appreciate input-- will continue with clear liquids and keep NPO after midnight * Morphine prn pain, Zofran and phenergan prn n/v * Temp 100.4c morning 09/03. BCx pending * Patient continues to express that he would not like to have any procedures if he is able to avoid. Discussed that Cr improved, however if untreated and stone does not pass, patient at increased risk for further/permanenet damage (2) Hydronephrosis of right kidney: * See above (3) Chronic prostatitis: * Trimethoprim will again be held, as patient will be on ceftriaxone IV (4) ASH (acute kidney injury): * Creatinine upon admission 1.69, with previous range 1.09-1.46. * 2L NSS, followed by IVF NSS @ 150cc/hr and titrated to 200cc/hr as above * Cr improved to 1.23 * Continue IVF as above * BMP in AM (5) Hypertension: * Controlled currently -- 136/84 * Hydralazine 10 mg IV every 4 hours PRN systolic blood pressure above 160 -- elevations likely secondary to pain (6) Constipation: * Per patient, no BM since evening 09/02 (day of discharge) * Req miralax/colace -- ordered * Continue to monitor, given continued need for pain medication (7) DVT prophylaxis: * SCDs * Chemoprophylaxis held in case of possible procedure in AM pending labs/evalution/passage of stone Dispo: NPO after midnight. Admission and Anticipated Discharge Date Admission Date: September 03, 2019 Supervising Physician Co-Signing Physician Notes JACQUELIN Supervision Note: I did not personally see or examine the patient today, but I verified all gonsales points of JACQUELIN Mckeon's assessment and plan with the following exceptions/additions: None Subjective Patient feeling ok this morning. Does state he feels a little out of it. Improved nausea with more frequent anti-emetics, however did have episode of n/v this morning which was without hematemesis. Does have some mild epigastric discomfort. Would like to trial PPI. If improvement, will continue. Discussed improvement in creatinine with increased IVF, however patient still without passage of stone. Has some right sided pain that he describes as a band like sensation. Tolerable with IV morphine. Will give diet today, continue IVF and patient states he is to stay overnight to re-evaluate in the morning. If possible, patient would like to wait until monday for lithotripsy. No bowel movement since the night he came in. Would like to try some miralax at the suggestion of his brother. Fever of 100.4F this morning. Review of Systems Review of Systems: All systems reviewed & are unremarkable except as noted in HPI & below Physical Exam Constitutional: WD/WN, vitals as above no acute distress Eyes: + anicteric sclerae; no conjunctival abnormality ENMT: Ears: no hearing impairment and no external ear abnormality Respiratory: normal respiratory effort, lungs clear to auscultation Cardiovascular: RRR, no murmur, no edema Gastrointestinal (Abdomen): Inspection/Auscultation: abdomen normal to inspection and normal bowel sounds; abdomen not distended Percussion/Palpation: + abdomen tender (minimally tender right flank) and abdomen soft; no guarding and no hepatosplenomegaly Musculoskeletal: no cyanosis or clubbing, extremities motor strength 5/5 Results & Data ([facility]) Vital Signs (Past 12 Hours) Vital Signs Temp Pulse Resp BP Pulse Ox 09/04/19 07:50 38.0 C H 65 16 133/75 97 Laboratory Results 09/04/19 09/04/19 Range/Units 08:18 08:18 WBC 9.33 (4.8-10.8) K/uL RBC 4.83 (4.7-6.1) M/uL Hgb 14.9 (14.0-18.0) g/dL Hct 41.6 L (42-52) % MCV 86.1 (80-100) fL MCH 30.8 (25-34) pg MCHC 35.8 (32-36) g/dL RDW Std Deviation 37.1 (36.4-46.3) fL RDW Coeff of Uri 11.7 (11.5-14.5) % Plt Count 174 (130-400) K/uL MPV 12.6 H (7.4-10.4) fL Immature Gran % (Auto) 0.2 % Neut % (Auto) 80.9 % Lymph % (Auto) 8.8 % [place] % (Auto) 10.0 % Eos % (Auto) 0.0 % Baso % (Auto) 0.1 % Immature Gran # (Auto) 0.02 (0.00-0.02) K/uL Neut # (Auto) 7.55 H (1.4-6.5) K/uL Lymph # (Auto) 0.82 L (1.2-3.4) K/uL [place] # (Auto) 0.93 H (0.11-0.59) K/uL Eos # (Auto) 0.00 (0-0.5) K/uL Baso # (Auto) 0.01 (0-0.2) K/uL Sodium 137 (136-145) mmol/L Potassium 3.8 (3.5-5.1) mmol/L Chloride 105 (98-107) mmol/L Carbon Dioxide 27 (21-32) mmol/L Anion Gap 6.0 (3-11) BUN 10 (7-18) mg/dl Creatinine 1.23 (0.6-1.4) mg/dl Est Cr Clr Drug Dosing 81.4 ml/min Est GFR ( Amer) 85.8 Est GFR (Non-Af Amer) 74.0 BUN/Creatinine Ratio 8.1 L (10-20) Glucose 111 H (70-99) mg/dl Calcium 8.3 L (8.5-10.1) mg/dl PG Care Time/CCT Total # of Minutes Spent Total Time Spent with Patient: Total time spent is greater than 50% in coordination of care (as documented) at patient's floor/unit and/or counseling patient: Coding Level of Care Code 80314 Subseq Hosp Care Lvl 2 Diagnoses Right distal ureteral calculus N20.1 Hydronephrosis of right kidney N13.30 Chronic prostatitis N41.1 ASH (acute kidney injury) N17.9 Hypertension I10 Constipation K59.00 DVT prophylaxis Z29.9
[2019-09-05] MEDS: SODIUM CHLORIDE 0.9% 1000ML 1,000 ML IV SCH ×5 (00:55→22:46)
[2019-09-05] MEDS: PROMETHAZINE HCL 12.5 MG in SODIUM CHLORIDE 0.9% 50 ML IV PRN ×3 (01:34→17:37)
[2019-09-05] MEDS: MoRPHine SULFATE 4 MG/ML 1 ML CARP\\VIAL IV PRN ×4 (01:51→20:57)
[2019-09-05] MEDS: ONDANSETRON INJ 2 MG/ML 2 ML VIAL IV PRN ×3 (06:02→20:57)
[2019-09-05] MEDS ORDERED: OXYCODONE/ACETAMINOPHEN 5mg/325mg TAB PO PRN ×2 (08:22→08:23)
--- NOTE | 2019-09-05 08:36 | XRay Report ---
KUB HISTORY: ureteral stone COMPARISON: [facility]UB 09/02/2019. Abdomen and pelvis CT 09/01/2019. FINDINGS: The bowel gas pattern is unremarkable. There are no dilated loops of small bowel to suggest an obstruction. No change in the 3 mm distal right ureteral stone. No renal calculi identified. No pneumoperitoneum or pneumatosis. IMPRESSION: No change in the 3 mm distal right ureteral stone. ACT 112: Negative or not required by law. Electronically signed by: Flaco Brumfield M.D. 09/05/2019 8:34 AM
[2019-09-05 09:14] LABS: BUN Creatinine Ratio 7.6 (10-20); Calcium 8.9 mg/dl (8.5-10.1); Creatinine Clr Calc Pharmacy 78.2 ml/min; Est GFR (African American) 81.7; Est GFR (Non-African American) 70.5; Potassium 3.6 mmol/L (3.5-5.1)
--- NOTE | 2019-09-05 09:41 | Urology Progress Note ---
Date of Service September 05, 2019 Assessment & Plan (1) Right distal ureteral calculus: (2) Hydroureteronephrosis: (3) Ureteral obstruction, right: 38-year-old male patient, inpatient day 3, with a right obstructing distal 3 mm ureteral stone, renal insufficiency, nausea/vomiting, and renal colic. -Keep NPO -Strain all urine -Continue IV hydration and pain control Findings reviewed with Dr. Angulo. Given his intractable pain and nausea in the context of an obstructing right 3 mm distal ureteral stone stone, will proceed with OR for cystoscopy, right retrograde pyelogram and right stent placement, possible ureteroscopy, laser lithotripsy, stone basketing, possible ureteral dilation depending on findings. Risks and benefits to be reviewed with patient by Dr. Angulo. OR notified. Discussed with anesthesia, Dr. Sanchez, EKG and chest x-ray not indicated. Will cover with IV Ciprofloxacin preoperatively. ADDENDUM at 1300 by ARMANDO Gagnon Received notice of cancellation to ESWL schedule tomorrow, now able to offer this as an alternative for stone management. Discussed option with patient, he prefers this option. Okay to provide clear liquid diet, advance to low fat for dinner, back to clear liquids at 8PM then NPO after MN. Dr Brush made aware, agreeable to plan to allow for medical management today, then discharge to surgery center tomorrow AM. Discussed risks and benefits of ESWL procedure, all questions answered. Pt verbalizes good understanding. Plan to proceed with Right ESWL tomorrow AM. Subjective Patient alert, awake, sitting at bedside. Reports his pain and nausea has continued. Has required both IV Phenergan and Zofran for nausea. Did have episode of vomiting this morning. Receiving IV morphine for pain control. Patient remains NPO since midnight. Denies fevers or chills overnight. Afebrile on chart review - last temp of 38.0 on 09/04 at 0750. Denies hematuria, dysuria, or urgency. Urine has been strained overnight without passing of stone. Creatinine today 1.28 Wbc 09/04 9.33 Blood cultures pending, currently on IV Rocephin. KUB on 09/02 without visualization of stone. KUB this morning 09/05 noted no change in 3 mm distal right ureteral stone. Patient frustrated with overall situation. OR options discussed in detail. Discussed surgical procedures with both patient and his brother who are in agreement with proceeding to OR today. Review of Systems Constitutional: as per Subjective / HPI Gastrointestinal: as per Subjective / HPI, + nausea and + vomiting Genitourinary: + as per Subjective / HPI Neurologic: no dizziness and no syncope Physical Exam Constitutional: well developed and well nourished; no acute distress and not ill appearing Respiratory: normal respiratory effort and able to speak in complete sentences; no respiratory distress and no audible wheezes Gastrointestinal (Abdomen): Inspection/Auscultation: abdomen normal to inspection; abdomen not distended Percussion/Palpation: abdomen soft; abdomen nontender and no guarding Psychiatric: Orientation: alert, oriented x 3 and cooperative Affect: euthymic affect Genitourinary: no CVA tenderness Results & Data Vital Signs (Past 12 Hours) Vital Signs Temp Pulse Resp BP Pulse Ox 09/05/19 07:57 37.3 C 63 20 149/81 H 98 09/04/19 22:52 37.3 C 70 16 146/92 H 99 PG Care Time/CCT Total # of Minutes Spent Total Time Spent with Patient: Total time spent is greater than 50% in coordination of care (as documented) at patient's floor/unit and/or counseling patient: Coding Level of Care Code 54457 Subseq Hosp Care Lvl 2 Diagnoses Right distal ureteral calculus N20.1 Hydroureteronephrosis N13.30 Ureteral obstruction, right N13.5
[2019-09-05] MEDS: POLYETHYLENE (MIRALAX) 17 GM PACK PO SCH ×3 (10:20→18:38)
[2019-09-05] MEDS: PANTOprazole 40 MG TAB PO SCH ×2 (10:20→10:36)
[2019-09-05] MEDS: cefTRIAXone SODIUM 1,000 MG in DEXTROSE 5% 50 ML IV SCH (10:20)
[2019-09-05] MEDS: TAMSULOSIN HCL 0.4 MG CAP PO SCH ×2 (10:20→13:36)
--- NOTE | 2019-09-05 12:41 | Hospitalist Progress Note ---
Date of Service September 05, 2019 Assessment & Plan (1) Right distal ureteral calculus: * 3 mm distal right ureteral calculus/mild right hydroureteronephrosis/chronic prostatitis. * Continue IVF @ 200cc/hr * KUB with no change in 3mm distal R ureteral stone * Cr without significant improvement -- slightly worse at 1.28 from 1.23 * Continue flomax * Morphine prn pain, perococet ordered while patient eating * Zofran/phenergan prn n/v * Tmax of 100.4 on morning of 09/03. * BCx NGTD * Low fat diet for dinner * NPO after midnight * Patient continued to express that he would not like to have any procedures if he is able to avoid. * Discussed with Urology -- to proceed with lithotripsy in AM. 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 Secondary to obstructing stone as above * Continue IVF @ 200cc/hr * Cr elevated but not much change from prior at 1.28 as above * Monitor BMP in AM (5) Hypertension: * Controlled currently -- 129/73 * Likely secondary to pain (6) Constipation: * Per patient, no BM since evening 09/02 (day of previous discharge) * Req miralax/colace -- ordered * Continue to monitor, given continued need for pain medication (7) DVT prophylaxis: * SCDs Dispo: NPO after midnight. Discharge IN AM 09/05 for lithotripsy at surgical center Admission and Anticipated Discharge Date Admission Date: September 03, 2019 Anticipated date of discharge: 09/06/19 Supervising Physician Co-Signing Physician Notes JACQUELIN Supervision Note: I did not personally see or examine the patient today, but I verified all gonsales points of JACQUELIN Mckeon's assessment and plan with the following exceptions/additions: None Subjective Patient evaluated this morning. Protonix helped with reflux and hiccups yesterday. Still having pain, tolerable with IV morphine. States the pain is primarily right sided but does feel similar to a band like sensation. Originally frustrated with being told there was not an available spot on Monday for lithotripsy when he was previously told that he would already be scheduled. States he continues to have nausea and had emesis this morning x 1. On the scheduled for this afternoon tentatively. Would still like to avoid intervention. Worries regarding feeling weak and having to have an operation. Would have preferred to wait until Monday. Seen again this evening after multiple conversations with urology midlevels. Plan for discharge early AM and to proceed with lithotripsy. Patient agreeable to low fat diet this evening but concerns regarding being told he was to be on full liquids. Discussed that I checked with urology and confirmed low fat diet this evening and then nothing after midnight. Patient agreeable to plan. Father and mother at bedside this evening. All questions/concerns addressed. Denies fevers, chills, chest pain. Review of Systems Review of Systems: All systems reviewed & are unremarkable except as noted in HPI & below Physical Exam Constitutional: WD/WN, vitals as above no acute distress Eyes: + anicteric sclerae; no conjunctival abnormality ENMT: Ears: no hearing impairment and no external ear abnormality Respiratory: normal respiratory effort, lungs clear to auscultation Cardiovascular: RRR, no murmur, no edema Gastrointestinal (Abdomen): Inspection/Auscultation: abdomen normal to inspection and normal bowel sounds; abdomen not distended Percussion/Palpation: + abdomen tender (minimally tender right flank) and abdomen soft; no guarding and no hepatosplenomegaly Musculoskeletal: no cyanosis or clubbing, extremities motor strength 5/5 Results & Data ([facility]) Vital Signs (Past 12 Hours) Vital Signs Temp Pulse Resp BP Pulse Ox 09/05/19 07:57 37.3 C 63 20 149/81 H 98 Laboratory Results 09/05/19 Range/Units 08:07 Sodium 136 (136-145) mmol/L Potassium 3.6 (3.5-5.1) mmol/L Chloride 102 (98-107) mmol/L Carbon Dioxide 29 (21-32) mmol/L Anion Gap 5.0 (3-11) BUN 10 (7-18) mg/dl Creatinine 1.28 (0.6-1.4) mg/dl Est Cr Clr Drug Dosing 78.2 ml/min Est GFR ( Amer) 81.7 Est GFR (Non-Af Amer) 70.5 BUN/Creatinine Ratio 7.6 L (10-20) Glucose 106 H (70-99) mg/dl Calcium 8.9 (8.5-10.1) mg/dl Diagnostic Findings KUB IMPRESSION: No change in the 3 mm distal right ureteral stone. PG Care Time/CCT Total # of Minutes Spent Total Time Spent with Patient: Total time spent is greater than 50% in coordination of care (as documented) at patient's floor/unit and/or counseling patient: Coding Level of Care Code 23311 Subseq Hosp Care Lvl 2 Diagnoses Right distal ureteral calculus N20.1 Hydronephrosis of right kidney N13.30 Chronic prostatitis N41.1 ASH (acute kidney injury) N17.9 Hypertension I10 Constipation K59.00 DVT prophylaxis Z29.9
--- NOTE | 2019-09-05 13:37 | XRay Report ---
XR chest 2V PA/lateral HISTORY: preop COMPARISON: Chest 04/03/2018 FINDINGS: The lungs are clear. Cardiac silhouette is normal in size. No pleural effusions. No pneumot horax. IMPRESSION: No acute process. ACT 112: Negative or not required by law. Electronically signed by: Flaco Brumfield M.D. 09/05/2019 1:35 PM
[2019-09-05] MEDS: ACETAMINOPHEN 1,000 MG/100 ML VIAL IV PRN (16:04)
--- NOTE | 2019-09-05 17:49 | Discharge Summary ---
Date of Service September 06, 2019 Admission HPI Per Admitting Provider The patient is a 38-year-old male with a past medical history including chronic prostatitis, previous kidney stone on the left side, urinary tract infection who was recently admitted from 09/01-09/02/2019 for a 3 mm distal right ureteral calculus with mild right hydronephrosis. His symptoms had resolved, and there was no stone visible on KUB, and the patient was discharged earlier in the day on 09/02. However, the patient developed recurrent nausea, vomiting and flank pain while at home, and work-up in the emergency department tonight included a renal ultrasound which redemonstrated the 3 mm distal ureteral stone, and persistent mild right hydronephrosis. Admission Exam Per Admitting Provider Physical Exam: The patient is awake, alert and oriented 3, well developed and well nourished, normocephalic and atraumatic, lying in bed on his side, with intermittent vomiting. HEENT--PERRL, EOMI, mucous membranes and oropharynx dry. Neck--supple. No JVD. No bruits. Thyroid normal, trachea midline, no adenopathy. Heart--normal S1 and S2. No murmurs, rubs or gallops. Lungs--clear bilaterally, no respiratory distress, no accessory muscle use. Abdomen--normal bowel sounds and soft. Generalized tenderness from vomiting. Nondistended Extremities--no cyanosis or clubbing. No edema. Dermatologic--normal skin turgor, normal color, no abnormal lymph nodes, no rash. Neurologic--cranial nerves II through XII grossly intact. Rheumatologic--normal range of motion. Psychiatric--normal affect. Principal Diagnosis 3mm RIGHT obstructing stone with hydronephrosis Discharge Exam Constitutional WD/WN, vitals as above no acute distress Eyes + anicteric sclerae; no conjunctival abnormality ENMT Ears: no hearing impairment and no external ear abnormality Neck trachea midline, no thyromegaly Respiratory normal respiratory effort, lungs clear to auscultation Cardiovascular RRR, no murmur, no edema Gastrointestinal (Abdomen) Inspection/Auscultation: abdomen normal to inspection and normal bowel sounds; abdomen not distended Percussion/Palpation: + abdomen tender (minimally tender right flank) and abdomen soft; no guarding and no hepatosplenomegaly Musculoskeletal no cyanosis or clubbing, extremities motor strength 5/5 Skin no rashes, warm and dry Neurologic PERRL, EOMI, accommodation nl, no face palsy, no dysarthria Psychiatric A+Ox3, euthymic affect Genitourinary GI without abnormality Lymphatic no cervical or axillary lymphadenopathy Discharge Data Allergies Allergy/AdvReac Type Severity Reaction Status Date / Time ketorolac [From Toradol] AdvReac decrease Verified 09/06/19 11:25 kidney function Consultations 09/03/19 00:34 ED Decision to Admit Stat 09/03/19 02:04 Consult Case Management - Discharge Planning Routine Consult Urology Routine Procedures Performed Operation Date: 09/05/19 14:45 <No data on this case meets the specified criteria> Ordered Studies 09/02/19 23:23 US renal/blad retro comp Urgent 09/05 KUB 09/06 KUB Hospital Course (1) Right distal ureteral calculus: * 3 mm distal right ureteral calculus/mild right hydroureteronephrosis/chronic prostatitis. Given 2L NSS, then IVF increased to 150cc/hr. IVF increased further to 200cc/hr. WBC initially 11.2k on admission. Improved to 9.3k * Cr improved from 1.69 to 1.22 * UA without evidence of infection. No culture sent. * Continued flomax per Urology * Strain all urine * Urology consult * Repeat KUB 09/06 without change in 3mm R sided stone * Patient discharged AM 09/06 for ESWL by Urology. Discharge instructions following ESWL per Urology. (2) Hydronephrosis of right kidney: * See above (3) Chronic prostatitis: * Trimethoprim again held as patient on IV ceftriaxone. To be resumed following abx from urology following ESWL (4) ASH (acute kidney injury): * Creatinine upon admission 1.69, with previous range 1.09-1.46. * 2L NSS, followed by IVF NSS @ 150cc/hr and titrated to 200cc/hr as above * Cr improved to 1.22 * IVF @ 200cc/hr until discharged for ESWL as above * Rec BMP as outpatient on monday to ensure resolution of ASH (5) Hypertension: * Likely secondary to pain. BP 140/75 prior to d/c * Will need outpatient follow up once pain resolved to see if he should be initiated on antihypertensive agent (6) Constipation: * Req miralax/colace -- ordered -- small BM evening 09/05 following fleets enema * Continued bowel regimen while on pain medication (7) DVT prophylaxis: * SCDs * Chemoprophylaxis held in case of possible procedure in AM Given prescription for protonix for reflux sx/indigestion. Also, patient with reported episode of bloody stool x1. GI completed without evidence of abnormality. No further episodes. Likely internal hemorrhoids in the setting of constipation secondary to pain medication use. Dispo: [facility] 11:15am Total Time Total Time Spent Total Time Spent (In Minutes): 55 Discharge Plan Discharge Items Patient Disposition: Home - Self-Care Reason For Visit: DISTAL RT URETERAL CALCULUS W/ RT HYDRO Discharge Diagnosis: 3mm obstructing right sided kidney stone with hydronephrosis (backup of fluid before the stone) Condition on Discharge: Fair Goals: You have been hospitalized for an acute medical problem. During your stay at [facility], we have made an effort to correct the problem that brought you to the hospital while keeping you as comfortable as possible. Medications were used to bring your condition under control and your discharge instructions will include directions for any medications you should take after leaving the hospital. Please make sure you see your Primary Care Provider as part of your follow up plan. Activity: Per Instructions section Activity Comment: as per Urology following lithotripsy Non-emergency contact: Primary Care Provider and Urologist Call non-emergency contact if: you have any medication questions, your symptoms worsen, your pain is concerning for you and you have a fever Follow-up/Referrals: Delgado Roberts MD [Physician] - 09/11/19 11:40 am Efrain Louis MD [Primary Care Provider] - Diet: Low Fat Diet Comment: Nothing by mouth until after surgery Ambulatory Orders: Basic Metabolic Panel (Routine) Timeframe: [id number] Location: Determined by Patient Ordered By: Perri Dykes Attending Provider Instructions: You have been hospitalized for a 3mm kidney stone on the right side that was obstructing. You were treated with medications for nausea and pain medication for pain. You may utilize Miralax and Docusate over the counter to assist with constipation, given morphine for pain tends to worsen/cause constipation. Given your episode of blood in bowel movement, rectal exam was performed and was without evidence of mass. May have been internal hemorrhoids worsened with constipation. Recommendation to follow up with PCP and have referral for gastroenterology if persists. You were given IV fluids with improvement of your kidney function, but it is still slightly elevated. You are being discharged for lithotripsy today at 11:15am. Please follow discharge instructions regarding activity following procedure. You may want to consider repeat labs to monitor your kidney function on Monday to ensure your kidney function is back to baseline. You will be sent with pain medication following your procedure by Urology. A lab prescription has been provided for repeat BMP on Monday. You are being sent a prescription for Protonix (pantoprazole) for reflux, given the improvement of your symptoms. If your reflux goes away after you are eating a normal diet, you may discuss discontinuing this medication and using over the counter Zantac (ranitidine) as needed. You have also been sent a prescription for zofran to use as needed for nausea. You should continue your bactrim for chronic prostatitis and follow up with Urology or primary care provider, unless otherwise intructed by Urology following your procedure. Please follow up with your family doctor in the next week, as well as Urology as above. Please return to the emergency room if you have any worsening pain, fever, or for any symptoms that are concerning for you. It has been a pleasure being a part of the medical team providing for you while you have been in the hospital. Take care! Pending Studies at Discharge: No Stand-Alone Forms: [facility], Opioid Pain Management Medications and DC Order Prescriptions: New pantoprazole 40 mg Tablet,Delayed Release (Dr/Ec) 40 mg PO QAM 30 Days Qty: 30 RF: 0 ondansetron HCl [Zofran] 4 mg tablet 4 mg PO Q8H PRN (Reason: nausea and vomiting) 4 Days Qty: 12 RF: 0 Continued trimethoprim 100 mg tablet 100 mg PO Q12H 30 Days Qty: 60 RF: 0 multivitamin Tablet 1 tab PO DAILY RF: 0 cholecalciferol (vitamin D3) [Vitamin D3] 2,000 unit Capsule 2,000 unit PO DAILY RF: 0 tamsulosin 0.4 mg Capsule 0.4 mg PO DAILY 7 Days Qty: 7 RF: 0 No Action hydrocodone-acetaminophen 5-325 mg tablet 1 tab PO Q6H PRN (Reason: pain) Qty: 25 RF: 0 Discharge Orders: Discharge Order (Routine); Ordered 09/06/19 Ordered By: Perri Mckeon Admission Data Admit Date/Time: 09/03/19 01:14 Attending Provider: Marisa Brush Admit Provider: Andrey Brunson Primary Care Provider: Efrain Louis Other Providers: Andrey Brunson ; Bulmaro Angulo I. Other Interventions: Discharge Summary Assessment (RN) Last Done: 09/06/19 10:30 DC Date/Time DO NOT enter until pt leaves facility: 09/06/19 11:08 Coding Level of Care Code D/C Day Management >30 mins Diagnoses Right distal ureteral calculus N20.1 Hydronephrosis of right kidney N13.30 Chronic prostatitis N41.1 ASH (acute kidney injury) N17.9 Hypertension I10 Constipation K59.00 DVT prophylaxis Z29.9
[2019-09-05] MEDS ORDERED: SOD PHOSPHATE/SOD BIPHOSPHATE ENEMA 132 ML BTL PR ONE (20:00)
[2019-09-06] MEDS: ONDANSETRON INJ 2 MG/ML 2 ML VIAL IV PRN ×2 (02:52→08:38)
[2019-09-06] MEDS: MoRPHine SULFATE 4 MG/ML 1 ML CARP\\VIAL IV PRN ×2 (02:52→08:39)
[2019-09-06] MEDS: SODIUM CHLORIDE 0.9% 1000ML 1,000 ML IV SCH ×3 (02:52→10:29)
[2019-09-06 06:00] LABS: BUN Creatinine Ratio 6.5 (10-20); Calcium 8.3 mg/dl (8.5-10.1); Creatinine Clr Calc Pharmacy 82.1 ml/min; Est GFR (African American) 86.6; Est GFR (Non-African American) 74.7; Potassium 3.5 mmol/L (3.5-5.1)
[2019-09-06] MEDS ORDERED: CIPROFLOXACIN 400 MG/200 ML BAG IV SCH (06:00)
--- NOTE | 2019-09-06 07:50 | Urology Progress Note ---
Date of Service September 06, 2019 Assessment & Plan (1) Right distal ureteral calculus: 38yo M with 3mm distal right ureteral stone, nausea/vomiting, renal colic Hospital team aware he will require discharge prior to 11AM, mother to transport patient to surgical center suite. Plan for KUB this AM to ensure visibility. Keep NPO until discharge. Continue IVFs until discharge. Pt wishes to proceed with outpatient right ESWL this AM. Risks and benefits again reviewed. All questions answered. Subjective 38yo M readmitted on 09/03 due to intractable pain and nausea associated with 3mm distal right ureteral stone, renal insufficiency, n/v, and renal colic Mother at bedside this AM. Continues to require IV pain and nausea medicine ATC. Emesis x1 yesterday around dinnertime when attempting to eat full liquid to soft consistency food. He has been consistently tolerating clears without issue he states. Some generalized lower abdominal discomfort which proceeds renal colic, improved by antinausea meds. Labs remain stable, nontoxic appearing however does appear to be fatigued. VSS, afebrile x >24 hours Review of Systems Review of Systems: All systems reviewed & are unremarkable except as noted in HPI & below Physical Exam Constitutional: comfortable; no acute distress, not ill appearing, no altered mental status and not lethargic Eyes: no nystagmus ENMT: Ears: no hearing impairment Neck: trachea midline Respiratory: no respiratory distress, does not use accessory muscles, no cough and no grunting Cardiovascular: Vessels: no JVD Extremities: no edema Chest (Breasts): Chest: normal inspection of chest Gastrointestinal (Abdomen): Inspection/Auscultation: abdomen not distended and no abdominal edema Percussion/Palpation: abdomen soft; abdomen nontender mild bloating Musculoskeletal: no cyanosis or clubbing, extremities motor strength 5/5 Head/Neck/Chest: normocephalic and head atraumatic Extremities: extremities normal to inspection Skin: no rashes, warm and dry Neurologic: awake; not confused and not obtunded Psychiatric: Orientation: alert and oriented x 3 Eye Contact: good eye contact Affect: no depressed affect Genitourinary: no CVA tenderness (right) Lymphatic: no lymphadenopathy and no lymphedema Results & Data Vital Signs (Past 12 Hours) Vital Signs Temp Pulse Resp BP BP Pulse Ox 09/06/19 07:10 37.0 C 62 18 140/75 98 09/05/19 23:06 37.0 C 56 L 14 149/83 H 100 09/05/19 21:03 37.2 C 57 L 20 155/89 H 99
--- NOTE | 2019-09-06 08:34 | XRay Report ---
XR KUB/Abdomen 1 view CLINICAL HISTORY: distal right stone visibility nephrocalcinosis COMPARISON STUDY: 09/05/2019. CT 09/01/2019 FINDINGS: Bowel pattern is nonobstructive. Fecal material obscures components of the kidneys. 3 mm distal right ureteral calculus is now seen. IMPRESSION: 3 mm distal right ureteral calculus is now identified. Poor visibility of the kidneys du e to overlying bowel content. ACT 112: Negative or not required by law. The above report was generated using voice recognition software. It may contain grammatical, syntax or spelling errors. Electronically signed by: Tree Hall M.D. 09/06/2019 8:33 AM
[2019-09-06] MEDS: PANTOprazole 40 MG TAB PO SCH (08:39)
[2019-09-06] MEDS: TAMSULOSIN HCL 0.4 MG CAP PO SCH (08:39)
[2019-09-06] MEDS: POLYETHYLENE (MIRALAX) 17 GM PACK PO SCH (08:39)
[2019-09-06] MEDS: cefTRIAXone SODIUM 1,000 MG in DEXTROSE 5% 50 ML IV SCH (08:41)
[2019-09-06 08:59] LABS: Basophils # (auto) 0.01 K/uL (0-0.2); Basophils % (auto) 0.1 %; Eosinophils # (auto) 0.02 K/uL (0-0.5); Eosinophils % (auto) 0.2 %; Hematocrit (blood only) 37.7 % (42-52); Hemoglobin 13.4 g/dL (14.0-18.0); Immature Granulocytes # (auto) 0.02 K/uL (0.00-0.02); Immature Granulocytes % (auto) 0.2 %; Lymphocytes # (auto) 0.98 K/uL (1.2-3.4); Lymphocytes % (auto) 11.9 %; Mean Corpuscular Hemoglobin 30.3 pg (25-34); Mean Corpuscular Hgb Conc 35.5 g/dL (32-36); Mean Corpuscular Volume 85.3 fL (80-100); Mean Platelet Volume 12.7 fL (7.4-10.4); Monocytes # (auto) 1.03 K/uL (0.11-0.59); Monocytes % (auto) 12.5 %; Neutrophils # (auto) 6.17 K/uL (1.4-6.5); Neutrophils % (auto) 75.1 %; Platelet Count 195 K/uL (130-400); RDW Coefficient of Variation 11.7 % (11.5-14.5); RDW Standard Deviation 36.5 fL (36.4-46.3); Red Blood Count 4.42 M/uL (4.7-6.1); White Blood Count 8.23 K/uL (4.8-10.8)
== END 2019-09-06 11:08 | disposition home or self-care (01) | DRG 694 ==
LOC: ED 20:41 → SUATTDRO 09-03 01:14 → 3N 09-03 01:14